=== PATIENT | female | born 1955 | race Caucasian/White ===

== ENCOUNTER → 2017-06-11 10:46 | Outpatient (CLI) | payer BC, SELFPAY ==
--- NOTE | 2017-06-11 | CA_ITS ---
PROCEDURE: 2-D M-mode and color Doppler study INDICATIONS FOR THE TEST: Chest pain+ COPD+ Heart Murmur Tobacco Smoking+ Palpitations+ Fatigue Syncope Edema+ Hypertension+Diabetes Mellitus Rheumatic Fever SOB+KINSEY+Obesity Hyperlipidemia+ Family History HD+ Additional History lt arm pain, dizziness PATIENT INFORMATION HEIGHT: 68 WEIGHT: 183 GENDER: Female B/P: 193/93 2-D/M-MODE INTERPRETATION: 2-D MEASUREMENTS OBSERVED VALUES IN CMS Right Ventricular Dimension (RVDd) 1.1 Interventricular Septum (Thickness)(IVsd) 1.2 Left Ventricular Internal Dimensions(LVIDd) 4.8 Left Ventricular Posterior Wall (Thickness)(LVPWd) 1.1 Aortic Root 2.8 Aortic Cusp Separation 1.9 Left Atrial Dimensions (LAD) 3.5 2D 1. Left atrium is mildly enlarged, left ventricle is normal size, there is mild concentric left ventricular hypertrophy, visually estimated ejection fraction 55% with no obvious regional wall motion abnormality. 2. The right atrium and right ventricle are normal size and contractility. 3. The aortic valve is minimally thickened and fibrosed. 4. The mitral and tricuspid valvular grossly normal. 5. The pulmonic valve is poorly visualized. 6. No significant pericardial effusion noted. DOPPLER INTERROGATION: Doppler interrogation of the aortic, mitral and tricuspid valvular presence of mild mitral and tricuspid regurgitation, tricuspid and jet velocity insufficient for calculation of the right ventricular systolic pressure, diastolic parameters are inconclusive. CONCLUSION: 1. Mildly enlarged left atrium, normal left ventricular size, mild concentric left ventricular hypertrophy, visually estimated ejection fraction 55% with no obvious regional wall motion abnormality, diastolic parameters are inconclusive. 2. Mild mitral and tricuspid regurgitation 3. No significant pericardial effusion noted.
--- NOTE | 2017-06-11 10:51 | XR_ITS ---
XR chest 2V COMPARISON: PA and lateral chest 06/15/2016 HISTORY: Chest pain TECHNIQUE: PA and lateral chest FINDINGS: The lung pederson are well expanded and appear clear of infiltrate. The cardiac silhouette and vascularity are normal and is no pleural fluid. Again noted are surgical clips in right axilla. IMPRESSION: Essentially negative chest
--- NOTE | 2017-06-11 10:51 | NM_ITS ---
CARDIOLITE SPECT MYOCARDIAL PERFUSION SCAN, REST AND STRESS: EXERCISE STRESS [facility] REVIEW QGS EF AND WALL MOTION EVALUATION: QPS - PERFUSION EVALUATION HISTORY: CHEST PAIN , SOB DOSE: 10.86 mCi technetium 99m mibi intravenously at rest followed by 31.1 mCi technetium 99m mibi following the intravenous ministration of 0.4 mg of Lexiscan. Resting blood pressure is 193/93. Stress blood pressure 184/93. FINDINGS: Ejection fraction is calculated to be 55. Uniform myocardial activity with both stress and rest gated images calculated ejection fraction of 55% with normal wall motion IMPRESSION: No scintigraphic evidence of Lexiscan-induced myocardial ischemia. Normal ejection fraction normal wall motion
--- NOTE | 2017-06-11 12:03 | HMH.ITSHM ---
ronaldo schulte carvedilol synthroid lyrica lipitor singaguila trivedi
== END ==
PROVIDERS: Family Provider Family Medicine; PCP Surgery; Visit Provider Family Medicine
DX: R07.9 Chest pain, unspecified (principal); R06.02 Shortness of breath
CPT/HCPCS: 71046; 78452; 93017; 93306; A9502; J2785

== ENCOUNTER → 2018-07-15 12:59 | Outpatient (CLI) | payer BC, SELFPAY ==
[2018-07-15 14:11] LABS: Basophils % 0.4 % (0.1-2.0); Eosinophils # 0.2 K/mm3 (0.0-0.4); Eosinophils % 2.4 % (0.1-12.0); Hematocrit 43.5 % (37.0-47.0); Hemoglobin 13.8 g/dL (12.2-16.2); Lymphocytes # 1.9 K/mm3 (0.7-4.5); Lymphocytes % 21.7 % (10-50); Mean Corpuscular HGB Conc 31.7 g/dL (31.8-35.4); Mean Corpuscular Hemoglobin 31.8 pg (27.0-31.2); Mean Corpuscular Volume 100.4 fl (81-99); Mean Platelet Volume 7.5 fl (7.4-10.4); Monocytes # 0.5 K/mm3 (0.1-1.0); Monocytes % 5.9 % (1.7-9.3); Neutrophils # 6.1 K/mm3 (1.8-7.8); Neutrophils % 69.5 % (37.0-80.0); Platelet Count 341 K/mm3 (142-424); Red Blood Count 4.34 M/mm3 (4.20-5.40); Red Cell Distribution Width 13.3 % (11.5-17.5); White Blood Count 8.8 K/mm3 (4.8-10.8)
[2018-07-15 15:33] LABS: Alanine Aminotransferase 29 U/L (12-78); Albumin Level 3.4 gm/dL (3.4-5.0); Albumin/Globulin Ratio 0.9 (1.1-1.8); Alkaline Phosphatase 82 U/L (46-116); Anion Gap 16.4 mEq/L (5-15); Aspartate Amino Transferase 7 U/L (15-37); Bilirubin,Total 0.4 mg/dL (0.2-1.0); Blood Urea Nitrogen 10 mg/dL (7-18); Calcium 9.1 mg/dL (8.5-10.1); Carbon Dioxide 24 mmol/L (21.0-32.0); Chloride 105 mmol/L (98-107); Chol/HDL Ratio 4.5 (1-3.5); Cholesterol 253 mg/dL (140-200); Estimated Glomerular Filt Rate 101 ml/min (>60); Ferritin 82 ng/mL (8-388); Free T4 (Free Thyroxine) 0.99 ng/dl (0.76-1.46); GFR (African American) 123 ML/MIN (>60); Globulin 3.6 gm/dl (1.3-3.2); Glucose 93 mg/dL (74-106); HDL Cholesterol 56 mg/dL (29-89); LDL Cholesterol 176 mg/dL (0-130); Potassium 4.4 mmoL/L (3.5-5.1); Sodium 141 mmol/L (136-145); Triglycerides 107 mg/dL (30-200); VLDL Cholesterol 21 mg/dL (0-40)
[2018-07-17 06:44] LABS: Iron 114 ug/dL (27-139); UIBC 240 ug/dL (118-369)
[2018-07-17 17:31] LABS: Iron Saturation 32 % (15-55)
== END ==
PROVIDERS: Visit Provider Physician Assistant
DX: E78.2 Mixed hyperlipidemia (principal); E03.9 Hypothyroidism, unspecified; I10 Essential (primary) hypertension; D64.9 Anemia, unspecified
CPT/HCPCS: 36415; 80053; 80061; 82728; 83540; 83550; 84439; 84443; 85025

== ENCOUNTER → 2018-07-19 13:35 | Outpatient (CLI) | payer BC, SELFPAY ==
--- NOTE | 2018-07-19 13:37 | XR_ITS ---
XR hand RT 2V HISTORY: ITS.REASON: PAIN OF RT THUMBINJURY OF RT HAND 4TH DIGIT ORDERING PHYSICIAN: PANCHITO Rutherford PATIENT AGE: 62 years COMPARISON: None FINDINGS: No fracture or dislocation. No lytic or blastic change. There are mild degenerative changes at the DIP joints. IMPRESSION: No acute finding
--- NOTE | 2018-07-19 13:37 | XR_ITS ---
XR DEXA axial skeleton HISTORY: ITS.REASON: POST MENOPAUSAL ORDERING PHYSICIAN: PANCHITO Rutherford PATIENT AGE: 62 years COMPARISON: None FINDINGS: The BMD measured at the Left femoral neck is 0.875 g/cm squared with a T score of -1.2. This is considered Osteopenic according to the World Health Organization criteria. Fracture risk is Moderate. Treatment is advised. The L1 L4 density has T score of -0.4 IMPRESSION: Knee with moderate fracture risk. Treatment is advised. Suggest follow-up exam June 2020
== END ==
PROVIDERS: PCP Family Medicine; Visit Provider Physician Assistant
DX: Z78.0 Asymptomatic menopausal state (principal); M79.644 Pain in right finger(s); S69.91XA Unspecified injury of right wrist, hand and finger(s), initial encounter
CPT/HCPCS: 73130; 77080

== ENCOUNTER → 2019-08-26 12:39 | Outpatient (CLI) | payer BC, SELFPAY ==
--- NOTE | 2019-08-26 12:59 | XR_ITS ---
PROCEDURE: 1. XR WRIST LT MIN 3V 2. XR HAND LT MIN 3V from 08/26/2019 Patient Age:64Y CLINICAL INDICATION: INJURY OF LEFT WRIST Left wrist pain. Left hand pain most evident about 3 and 4 MCP the COMPARISON: XR HAND LT MIN 3V from 08/26/2019 FINDINGS: LEFT HAND 3v: AP, lateral, oblique Developing hypertrophic degenerative arthritic changes noted at DIP joints left hand. Most notable hypertrophic changes are seen at DIP joint long finger(3rd finger) followed by DIP joint index finger(2nd finger). Minor hypertrophy posterior aspect DIP joint 5th finger. MCP and the PIP joints appear well maintained and intact at all fingers a specifically 3rd and 4th MCP joints appear intact and well maintained. Head of these metacarpals intact. No erosive changes At the thumb the the 1st carpal-metacarpal joint, 1st MCP joint appear intact and unremarkable. Only scant hypertrophy about IP joint thumb LEFT WRIST 3v: AP, lateral, oblique: Carpals appear intact no fracture but normal relationships but distal radius and ulna intact. Pronator fat plane appears normal anterior to the wrist IMPRESSION: No acute findings. No fracture nor dislocation Left wrist intact no fracture Left hand, no fracture. Would note degenerative arthritic changes at DIP joints as detailed in text MCP joint 3 and 4 unremarkable Dictated by: Alfredo Biswas MD 08/27/2019 10:06 Electronically signed by Alfredo Biswas MD in [place] 08/27/2019 10:06
--- NOTE | 2019-08-26 12:59 | XR_ITS ---
PROCEDURE: XR CERVICAL SPINE 3V CLINICAL INDICATION: NECK PAIN COMPARISON: No exams were available for comparison FINDINGS: There is reversal of the cervical lordosis at C3-C4 area with 3 mm anterolisthesis of C3. Severe degenerative disc disease is present at C5-C6 and C6-C7. Bridging osteophytes are noted anteriorly at C4-C5 C6 and C7. Endplate osteophytes posteriorly are noted at C5-C6 and C6-C7. Facet arthritic changes are present from C3-C7. No acute fracture or dislocation. There is a 6 mm calcific density projecting over the right frontal sinus medially possibly due to an osteoma or an intracranial calcification. IMPRESSION: Cervical spondylosis with degenerative disc disease and facet arthritic change. Please see above for detail Possible frontal sinus osteoma or intracranial calcification which may be better evaluated with CT Dictated by: Daniel Adrian MD 08/28/2019 07:56 Electronically signed by Daniel Adrian MD in [place] 08/28/2019 07:56
[2019-08-26 13:05] LABS: Basophils # 0.1 K/mm3 (0-0.2); Basophils % 0.6 % (0.1-2.0); Eosinophils # 0.3 K/mm3 (0.0-0.4); Eosinophils % 2.9 % (0.1-12.0); Hematocrit 39.8 % (37.0-47.0); Hemoglobin 13.2 g/dL (12.2-16.2); Lymphocytes # 2.1 K/mm3 (0.7-4.5); Lymphocytes % 20.1 % (10-50); Mean Corpuscular HGB Conc 33.2 g/dL (31.8-35.4); Mean Corpuscular Hemoglobin 33.7 pg (27.0-31.2); Mean Corpuscular Volume 101.3 fl (81-99); Mean Platelet Volume 7.6 fl (7.4-10.4); Monocytes # 0.5 K/mm3 (0.1-1.0); Monocytes % 5.2 % (1.7-9.3); Neutrophils # 7.3 K/mm3 (1.8-7.8); Neutrophils % 71.1 % (37.0-80.0); Platelet Count 335 K/mm3 (142-424); Red Blood Count 3.93 M/mm3 (4.20-5.40); Red Cell Distribution Width 13.5 % (11.5-17.5); White Blood Count 10.3 K/mm3 (4.8-10.8)
[2019-08-26 13:23] LABS: Chloride 106 mmol/L (98-107); Potassium 4.6 mmoL/L (3.5-5.1); Sodium 136 mmol/L (136-145)
[2019-08-26 13:25] LABS: Blood Urea Nitrogen 13 mg/dl (7-17); Estimated Glomerular Filt Rate 84 ml/min (>60); GFR (African American) 102 ML/MIN (>60)
[2019-08-26 13:26] LABS: Alanine Aminotransferase 19 U/L (12-78); Albumin Level 3.9 g/dl (3.5-5.0); Albumin/Globulin Ratio 1.3 (1.1-1.8); Alkaline Phosphatase 73 U/L (38-126); Anion Gap 8.6 mEq/L (5-15); Aspartate Amino Transferase 17 U/L (14-36); Bilirubin,Total 0.6 mg/dl (0.2-1.3); Calcium 9.5 mg/dl (8.4-10.2); Carbon Dioxide 26 mmol/L (22.0-30.0); Cholesterol 231 mg/dl (140-200); Globulin 2.9 g/dL (1.3-3.2); Glucose 105 mg/dl (74-100); Total Protein,Serum 6.8 g/dl (6.3-8.2); Triglycerides 221 mg/dl (30-150); VLDL Cholesterol 44 mg/dL (0-40)
[2019-08-26 13:27] LABS: Chol/HDL Ratio 3.3 (1-3.5); HDL Cholesterol 70 mg/dl (40-60)
[2019-08-26 13:37] LABS: Direct LDL Cholesterol 144.22 mg/dL (100-129)
[2019-08-26 13:44] LABS: Free T4 (Free Thyroxine) 1.01 ng/dl (0.78-2.19)
[2019-08-26 13:57] LABS: Thyroid Stimulating Hormone 5.82 uIU/mL (0.465-4.68)
[2019-08-26 15:19] LABS: 25-OH Vitamin D, Total 33.2 ng/mL (30-100)
[2019-08-27 11:12] LABS: Vitamin B12 998 pg/mL (232-1245)
== END ==
PROVIDERS: Visit Provider Physician Assistant
DX: E03.9 Hypothyroidism, unspecified (principal); E53.8 Deficiency of other specified B group vitamins; E78.2 Mixed hyperlipidemia; E55.9 Vitamin D deficiency, unspecified; D64.9 Anemia, unspecified; I10 Essential (primary) hypertension; S69.92XA Unspecified injury of left wrist, hand and finger(s), initial encounter; M54.2 Cervicalgia
CPT/HCPCS: 36415; 72040; 73110; 73130; 80053; 80061; 82306; 82607; 84439; 84443; 85025

== ENCOUNTER → 2019-09-01 12:41 | Outpatient (CLI) | payer BC, SELFPAY ==
--- NOTE | 2019-09-01 12:47 | CA_ITS ---
APPROVED REPORT Excavation Laborer: ROHITH Laterality: Bilateral Study Quality: Good Indications: DIZZINESS,HTN Doppler Spectral Velocity Analysis dICA (R) 67.80/20.50 cm/s dICA (L) 77.90/24.40 cm/s Stalin (R) 91.30/22.50 cm/s Stalin (L) 79.10/25.60 cm/s pICA (R) 81.30/16.30 cm/s pICA (L) 126.90/29.50 cm/s dCCA (R) 93.30/21.00 cm/s dCCA (L) 108.80/33.10 cm/s pCCA (R) 94.20/20.70 cm/s pCCA (L) 123.90/26.40 cm/s Vert (R) 83.80/21.70 cm/s Vert (L) 50.90/14.70 cm/s ICA/CCA 1.00 ICA/CCA 1.20 Findings Duplex evaluation demonstrates stenosis of the right proximal internal carotid artery <20% with PSV <140 cm/sec, EDV <100 cm/sec, and IC/CC Ratio <4.0.Duplex evaluation demonstrates stenosis of the left proximal internal carotid artery <20% with PSV <140 cm/sec, EDV <100 cm/sec, and IC/CC Ratio <4.0.Antegrade flow seen bilateral vertebral arteries. Conclusion No increased velocities to suggest hemodynamically significant stenosis in either internal carotid artery. Electronically signed by : Daniel Adrian MD 09/01/2019 16:26:50
--- NOTE | 2019-09-01 13:20 | MR_ITS ---
PROCEDURE: MR HEAD/BRAIN WO/W CON CLINICAL INDICATION: PARESTHESIA, DIZZINESS, FREQUENT FALLS Dizziness, falling frequently, history of breast cancer, right-sided temporal headache COMPARISON: No exams were available for comparison TECHNIQUE: Routine multiplanar multi echo sequences are performed without and with gadolinium enhancement. FINDINGS: No midline shift, mass effect, intracranial hemorrhage, or hydrocephalus is evident. There are scattered periventricular and subcortical T2 white matter hyperintensities which are nonspecific and may be due to ischemic gliotic change from microvascular disease. No enhancing lesions are evident. No evidence of acute infarction the pituitary, optic chiasm, corpus callosum, and craniocervical junction have an unremarkable appearance. 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 Scattered nonspecific T2 white matter hyperintensities which may be due to ischemic gliotic foci from microvascular disease. Benign-appearing 6 mm pineal cyst Otherwise negative MRI of the brain without and with contrast Dictated by: Daniel Adrian MD 09/02/2019 11:31 Electronically signed by Daniel Adrian MD in [place] 09/02/2019 11:32
== END ==
PROVIDERS: PCP Family Medicine; Visit Provider Physician Assistant
DX: R42 Dizziness and giddiness (principal); R20.2 Paresthesia of skin; R29.6 Repeated falls
CPT/HCPCS: 70553; 93880; A9576

== ENCOUNTER → 2019-09-07 07:39 | Outpatient (CLI) | payer BC, SELFPAY ==
--- NOTE | 2019-09-07 07:44 | CT_ITS ---
PROCEDURE: CT SINUS WO CON CLINICAL HISTORY: MASS OF SINUS Headache, history of dizziness and paresthesias COMPARISON: MR HEAD/BRAIN WO/W CON from 09/01/2019 TECHNIQUE: Axial images obtained with sagittal and coronal reformats. All CT scans at the facility use one or more dose reduction, viz: automated exposure control, ma/kV adjustment per patient size (including targeted exams where dose is matched to indication, i.e. head), or iterative reconstruction technique. FINDINGS: Small osteoma noted in the left frontal sinus anteriorly. Minimal mucosal thickening ethmoid sinus on the left. The maxillary sinuses have an unremarkable appearance. There is an air-fluid level and posterior extension of the sphenoid sinus on the right. The sphenoid sinus extends posteriorly into the clivus as a normal variant. There is mucosal thickening and air-fluid level at this region. This area does demonstrate increased T2 signal on the MRI of 09/01/2019. A mass of the sinus is not identified. Mild mucosal thickening involves the lateral aspect of the sphenoid sinus on the right posteriorly as well. The mastoid sinuses have an unremarkable appearance. No significant nasal septal deviation.. The TMJs have an unremarkable appearance as do the orbits. IMPRESSION: 1. 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 There is an air-fluid level and mucosal thickening at this region consistent with sinusitis within this area of extension. 2. Small left frontal sinus osteoma with minimal mucosal thickening of the left ethmoid sinuses Dictated by: Daniel Adrian MD 09/09/2019 08:07 Electronically signed by Daniel Adrian MD in [place] 09/09/2019 08:07
--- NOTE | 2019-09-07 08:09 | MR_ITS ---
PROCEDURE: MR CERVICAL SPINE WO CON CLINICAL INDICATION: OSTEOARTHRITIS OF SPINE WITH RADICULOPATHY Right shoulder pain with numbness and tingling down right arm. X 3 months. Falling frequently. Headache. Prior x-ray 08/26/2019 COMPARISON: XR CERVICAL SPINE 3V from 08/26/2019 TECHNIQUE: Standard multiplanar multiecho sequences are performed without contrast. 3-D MIP and myelographic images are also rendered and reviewed FINDINGS: The craniocervical junction has an unremarkable appearance. There is reversal of the cervical lordosis C2-C3: Mild left foraminal narrowing from uncovertebral hypertrophy. C3-C4: Mild right foraminal narrowing from facet and uncovertebral hypertrophy C4-C5: Degenerate disc disease with bulging disc. There is narrowing of the canal at 10 mm with mild flattening of the cord anteriorly. C5-C6: Degenerate disc disease with bulging disc. There is 3 mm retrolisthesis of C5 with endplate osteophytes. There is canal stenosis of 8 mm with bilateral lateral recess and foraminal narrowing and minimal flattening of the cord anteriorly. There is increased T2 signal involving the C5 and C6 vertebral bodies consistent with type 1 endplate changes. Prominent anterior osteophytes are present at C5-C6 C6-C7: Degenerate disc disease with mild bulging disc with narrowing of the canal at 9 mm and bilateral foraminal narrowing greater on the right. C7-T1: Unremarkable There is degenerative disc disease at T3-T4 with bulging disc only imaged in the sagittal plane. IMPRESSION: Multilevel cervical spondylosis as detailed above with degenerative disc disease with bulging discs, endplate hypertrophy and uncovertebral hypertrophy noted with canal stenosis and foraminal narrowing. Please see above for detailed description at each level. The no extruded herniated disc. Dictated by: Daniel Adrian MD 09/08/2019 12:18 Electronically signed by Daniel Adrian MD in [place] 09/08/2019 12:18
== END ==
PROVIDERS: PCP Family Medicine; Visit Provider Physician Assistant
DX: J34.89 Other specified disorders of nose and nasal sinuses (principal)
CPT/HCPCS: 70486; 72141; 76376

== ENCOUNTER 2019-12-04 13:28 | Emergency (ER) | payer BC, SELFPAY ==
[2019-12-04 14:42] VITALS: BP 157/96; PULSE 64; RESP 18; TEMP 36.9; O2SAT 97; BMI 27.3
--- NOTE | 2019-12-04 14:50 | HMH.EDUTC ---
[facility] Disposition Clinical Impression: Otitis media Qualifiers: Otitis media type: suppurative Chronicity: acute Laterality: bilateral Recurrence: non-recurrent Spontaneous tympanic membrane rupture: without spontaneous rupture Qualified Code(s): H66.003 - Acute suppurative otitis media without spontaneous rupture of ear drum, bilateral Disposition: Home, Self-Care Condition on Discharge: Good Instructions: Middle Ear Infection Additional Instructions: Drink plenty of fluids. Take tylenol or ibuprofen for pain or fever. Take the medications as directed. Follow up with your regular doctor. GO TO THE ER FOR ANY WORSENING SYMPTOMS Prescriptions: Amoxicillin [Amoxicillin 500mg Tab] 500 mg PO TID 10 Days #30 tab Transmission Status: Received by [facility] methylPREDNISolone [Medrol] 4 mg PO DIRECTED 6 Days #21 tab.ds.pk Transmission Status: Received by [facility] Referrals: Arely Hanna MD [Primary Care Provider] - Time of Disposition: 15:11 Medical Decision Making - Medical Records Medical records reviewed: No: I reviewed the patient's medical records. - Yossi Inquiry Pt receiving controlled substance: No Vital Signs: 12/04/19 14:42 12/04/19 15:13 Temperature 98.5 F 98.5 F Temperature Source Oral Pulse Rate 64 Pulse Rate [Right Brachial] 64 Respiratory Rate 18 18 Blood Pressure 157/96 H Blood Pressure [Right Arm] 157/96 H Blood Pressure Mean [Right Arm] 116 Blood Pressure Source [Right Arm] Automatic Cuff Blood Pressure Position [Right Arm] Sitting 02 Sat by Pulse Oximetry 97 Oxygen Delivery Method Room Air [facility] HPI - General Stated complaint: dizzy Time Seen by Provider: 12/04/19 14:50 Mode of Arrival: Ambulatory Source of Information: Patient Limitations: No Limitations Description of Symptoms (Recalled from Triage Doc. by RN): PATIENT C/O PAIN AND SWELLING TO LEFT OUTER EAR WITH DIZZINESS X 2-3 DAYS HEENT Symptoms (Recalled from RN notes): Yes Resp Symptoms (Recalled from RN notes): No Skin Symptoms (Recalled from RN notes): No MS Symptoms (Recalled from RN notes): No Functional Status (Recalled from RN notes): WNL - History of Present Illness Provider Complaint: She c/o left ear pain for the past 3 days. She state that she has a history of frequent ear infections. - Related Data Home Medications Medication Instructions Recorded Confirmed Atorvastatin Calcium [Lipitor 10mg 10 mg PO HS 05/01/19 10/17/19 Tab] Fluticasone/Vilanterol [Breo 1 puff IH DAILY 05/01/19 10/17/19 Ellipta 200-25 Mcg INH] Montelukast Sodium 10 mg PO DAILY 05/01/19 10/17/19 Pregabalin 75 mg PO BID 05/01/19 10/17/19 carvediloL [Carvedilol 3.125mg Tab] 3.125 mg PO BID 05/01/19 10/17/19 cefdinir 300 mg capsule 300 mg PO BID cap 09/26/19 10/17/19 citalopram 20 mg tablet 20 mg PO DAILY tab 09/26/19 10/17/19 diclofenac epolamine 1.3 % 1 patch TRANSDERMA PRN each 09/26/19 10/17/19 transdermal 12 hour patch levothyroxine 88 mcg tablet 88 mcg PO DAILY tab 09/26/19 10/17/19 loratadine 10 mg tablet 10 mg PO DAILY tab 09/26/19 10/17/19 multivitamin 1 tab PO DAILY 09/26/19 10/17/19 calcium carbonate 500 mg calcium 500 mg PO DAILY 10/17/19 10/17/19 (1,250 mg) tablet cholecalciferol (vitamin D3) 50 50 mcg PO DAILY 10/17/19 10/17/19 mcg (2,000 unit) capsule magnesium 30 mg tablet 30 mg PO DAILY 10/17/19 10/17/19 vitamin B complex-folic acid 0.4 1 tab PO DAILY 10/17/19 10/17/19 mg tablet vitamin E 200 unit capsule 200 unit PO DAILY 10/17/19 10/17/19 Previous Rx's Medication Instructions Recorded Etodolac [Etodolac 200mg Cap*] 200 mg PO Q6H PRN #20 cap 05/01/19 fexofenadine 180 mg tablet 180 mg PO DAILY 60 Days #60 tab 10/02/19 sodium chloride 0.65 % nasal spray 1 spray INTRANASAL BID #30 ml 10/02/19 aerosol Amoxicillin [Amoxicillin 500mg Tab] 500 mg PO TID 10 Days #30 tab 12/04/19 methylPREDNISolone [Medrol] 4 mg PO DIRECTED 6 Days #21 12/03
[2019-12-04 15:13] VITALS: BP 157/96; PULSE 64; RESP 18; TEMP 36.9; O2SAT 97
== END 2019-12-04 15:20 | disposition home or self-care (01) ==
PROVIDERS: Emergency Provider Nurse Practitioner Family; PCP Family Medicine
DX: H66.003 Acute suppurative otitis media without spontaneous rupture of ear drum, bilateral (principal); I10 Essential (primary) hypertension; E78.5 Hyperlipidemia, unspecified; K21.9 Gastro-esophageal reflux disease without esophagitis; E11.9 Type 2 diabetes mellitus without complications; F41.8 Other specified anxiety disorders; J45.909 Unspecified asthma, uncomplicated; G43.709 Chronic migraine without aura, not intractable, without status migrainosus; Z90.49 Acquired absence of other specified parts of digestive tract; Z79.899 Other long term (current) drug therapy; Z88.5 Allergy status to narcotic agent
CPT/HCPCS: 99201

== ENCOUNTER → 2020-06-10 14:33 | Outpatient (CLI) | payer BC, SELFPAY ==
--- NOTE | 2020-06-10 | CA_ITS ---
APPROVED REPORT Left Upper Extremity Venous Study for DVT. 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 Palpable knot in Left upper arm resolved with massage sending arm pain up more proximal to axilla Risk Factors Prior Pulmonary Embolism Vein Imaging IJV (L): Normal phasic flow is seen. Normal flow, augmentation and compression is seen. No evidence of Deep Vein Thrombosis. No abnormalities are demonstrated. SCV (L): Normal phasic flow is seen. Normal flow, augmentation and compression is seen. No evidence of Deep Vein Thrombosis. No abnormalities are demonstrated. Axillary (L): Normal phasic flow is seen. Normal flow, augmentation and compression is seen. No evidence of Deep Vein Thrombosis. No abnormalities are demonstrated. Brachial (L): Normal phasic flow is seen. Normal flow, augmentation and compression is seen. No evidence of Deep Vein Thrombosis. No abnormalities are demonstrated. Basilic (L): Normal phasic flow is seen. Normal flow, augmentation and compression is seen. No evidence of Deep Vein Thrombosis. No abnormalities are demonstrated. Cephalic (L): Normal phasic flow is seen. Normal flow, augmentation and compression is seen. No evidence of Deep Vein Thrombosis. No abnormalities are demonstrated. Radial (L): Normal phasic flow is seen. Normal flow, augmentation and compression is seen. No evidence of Deep Vein Thrombosis. No abnormalities are demonstrated. Ulnar (L): Normal phasic flow is seen. Normal flow, augmentation and compression is seen. No evidence of Deep Vein Thrombosis. No abnormalities are demonstrated. Findings Duplex evaluation of the left upper extremity demonstrates no evidence of DVT. Conclusion Duplex evaluation of the left upper extremity demonstrates no evidence of DVT. Electronically signed by : Daniel Adrian MD 06/10/2020 15:56:03
[2020-06-10 15:53] LABS: Chloride 106 mmol/L (98-107); Potassium 4.9 mmoL/L (3.5-5.1); Sodium 138 mmol/L (136-145)
[2020-06-10 15:55] LABS: Blood Urea Nitrogen 17 mg/dl (7-17); Estimated Glomerular Filt Rate 84 ml/min (>60); GFR (African American) 102 ML/MIN (>60)
[2020-06-10 15:56] LABS: Alanine Aminotransferase 19 U/L (12-78); Albumin Level 4.1 g/dl (3.5-5.0); Albumin/Globulin Ratio 1.5 (1.1-1.8); Alkaline Phosphatase 80 U/L (38-126); Anion Gap 12.9 mEq/L (5-15); Aspartate Amino Transferase 19 U/L (14-36); Bilirubin,Total 0.3 mg/dl (0.2-1.3); Calcium 9.8 mg/dl (8.4-10.2); Carbon Dioxide 24 mmol/L (22.0-30.0); Globulin 2.8 g/dL (1.3-3.2); Glucose 98 mg/dl (74-100); Total Protein,Serum 6.9 g/dl (6.3-8.2)
[2020-06-10 16:00] LABS: Erythrocyte Sedimentation Rate 16 mm/hr (0-30)
== END ==
PROVIDERS: PCP Family Medicine; Visit Provider Family Medicine
DX: M79.602 Pain in left arm (principal); Z86.718 Personal history of other venous thrombosis and embolism
CPT/HCPCS: 36415; 80053; 85651; 93971

== ENCOUNTER → 2020-12-11 15:29 | Outpatient (CLI) | payer MEDICARE, SELFPAY ==
--- NOTE | 2020-12-11 15:40 | XR_ITS ---
PROCEDURE: XR FOOT RT MIN 3V CLINICAL INDICATION: RT FOOT PAIN (PER ELOISA DAVIS) COMPARISON: No exams were available for comparison FINDINGS: No fracture or dislocation. No lytic or blastic change. There is normal mineralization. The joint spaces are well-preserved. No significant degenerative/arthritic changes. No erosive changes evident. Other findings:None. IMPRESSION: No acute findings. Dictated by: Daniel Adrian MD 12/11/2020 16:29 Daniel Adrian MD in [place] 12/11/2020 16:29
[2020-12-11 16:08] LABS: Adenovirus,PCR Not Detected (NotDetected); Bordetella Pertussis Not Detected (NotDetected); Chlamydophila Pneumoniae, PCR Not Detected (NotDetected); Coronavirus 19, PCR Not Detected (NotDetected); Coronavirus 229E Not Detected (NotDetected); Coronavirus NL63 Not Detected (NotDetected); Coronavirus OC43 Not Detected (NotDetected); Coronovirus HKU1,PCR Not Detected (NotDetected); Human Metapneumovirus Not Detected (NotDetected); Influenza A, PCR Not Detected (NotDetected); Influenza AH1, 2009 Not Detected (NotDetected); Influenza AH1, PCR Not Detected (NotDetected); Influenza AH3,PCR Not Detected (NotDetected); Influenza B, PCR Not Detected (NotDetected); Microscopic, Urine URINE MICROSCOPIC (MICROSCOPIC); Mycoplasma Pneumoniae, PCR Not Detected (NotDetected); Parainfluenza 1, PCR Not Detected (NotDetected); Parainfluenza 2, PCR Not Detected (NotDetected); Parainfluenza 3, PCR Not Detected (NotDetected); Parainfluenza 4, PCR Not Detected (NotDetected); Respiratory Syncytial Virus Not Detected (NotDetected); Rhinovirus/Enterovirus Not Detected (NotDetected)
[2020-12-11 16:16] LABS: Appearance,Urine CLOUDY (Clear); Bilirubin,Urine Negative (Negative); Blood, Urine Negative (Negative); Color,Urine DK YELLOW (Yellow); Glucose,Urine (UA) Negative (Negative); Ketones,Urine Negative (Negative); Leukocyte Esterase,Urine 1+ (Negative); Nitrate,Urine Negative (Negative); Protein,Urine TRACE (Negative)
[2020-12-11 16:29] LABS: Basophils # 0.1 K/mm3 (0-0.2); Basophils % 0.9 % (0.1-2.0); Eosinophils # 0.5 K/mm3 (0.0-0.4); Eosinophils % 4.1 % (0.1-12.0); Hematocrit 42.7 % (37.0-47.0); Hemoglobin 13.5 g/dL (12.2-16.2); Lymphocytes # 2.7 K/mm3 (0.7-4.5); Lymphocytes % 24.3 % (10-50); Mean Corpuscular HGB Conc 31.6 g/dL (31.8-35.4); Mean Corpuscular Volume 104.3 fl (81-99); Mean Platelet Volume 8.3 fl (7.4-10.4); Monocytes # 0.7 K/mm3 (0.1-1.0); Neutrophils # 7.2 K/mm3 (1.8-7.8); Neutrophils % 64.8 % (37.0-80.0); Platelet Count 393 K/mm3 (142-424); Red Cell Distribution Width 13.2 % (11.5-17.5); White Blood Count 11.2 K/mm3 (4.8-10.8)
[2020-12-11 18:36] LABS: Bacteria,Urine 1+ /lpf; Squamous Epithelial Cell,Urine Occasional #/hpf (0-5); WBC,Urine TNTC #/hpf (0-3)
== END ==
PROVIDERS: PCP Family Medicine; Visit Provider Physician Assistant
DX: Z20.822 Contact with and (suspected) exposure to COVID-19 (principal); N39.0 Urinary tract infection, site not specified; M79.671 Pain in right foot; B96.1 Klebsiella pneumoniae [K. pneumoniae] as the cause of diseases classified elsewhere
CPT/HCPCS: 36415; 73630; 81001; 85025; 87086; 87088; 87186; 87581; 87632; 87798; C9803; U0003; U0005

== ENCOUNTER 2021-01-29 14:03 | Emergency (ER) | payer MEDICARE, SELFPAY ==
[2021-01-29 14:18] VITALS: BP 155/93; PULSE 61; RESP 18; TEMP 37.1; O2SAT 96; BMI 28.1
--- NOTE | 2021-01-29 14:58 | HMH.EDGENADL ---
ED Disposition Clinical Impression: Dermatitis Disposition: Home, Self-Care Condition on Discharge: Good Instructions: DI for Contact Dermatitis Prescriptions: Hydrocortisone [Hydrocortisone 1% Cream 30gm Tube] 1 applicatio TP BID 10 Days #30 gm Transmission Status: Pending to [facility] Referrals: Arely Hanna MD [Primary Care Provider] - [facility] [Other] ( [place] [address] Call [phone] ) - Critical Care Critical Care Time: No Attestation: On 01/29/21, the high probability of a clinically significant, sudden or life threatening deterioration of the following system(s) required my full and direct attention, intervention and personal management. The time I documented below is in addition to time spent performing reported procedures but includes the following listed in this critical care notation. Medical Decision Making - Medical Records Medical records reviewed: Yes: I reviewed the patient's medical records. - Yossi Inquiry Pt receiving controlled substance: No Vital Signs: 01/29/21 14:18 Temperature 98.7 F Temperature Source Oral Pulse Rate [Right Radial] 61 Respiratory Rate 18 Blood Pressure [Right Arm] 155/93 H Blood Pressure Mean [Right Arm] 113 Blood Pressure Source [Right Arm] Automatic Cuff Blood Pressure Position [Right Arm] Sitting 02 Sat by Pulse Oximetry 96 Oxygen Delivery Method Room Air Medical Decision Narrative: 65-year-old female presented to the emergency department with some itchiness and irritation. The patient is concerned that she has fleas burrowing in her skin. However they state that they have fumigated there place of residence multiple times. I do not see any obvious bugs or burrowing lesions. Patient's findings are consistent with excoriations. Patient will be given some topical steroids to help with symptoms. Given dermatology follow-up. Given strict return precautions. Verbalized understanding. General Adult HPI - General Chief complaint: Recheck/Abnormal Lab/Rx Stated complaint: fleas Time Seen by Provider: 01/29/21 14:20 Mode of Arrival: Ambulatory Limitations: No Limitations Description of Symptoms (Recalled from ER Triage Doc. by RN): Pt stated that they have been dealing with internal and external fleas for about 6 months. She was given cream to deal with them. She states that she has ear pain. She thinks they are down in her ear. She states that she can see them in her spit. - History of Present Illness HPI narrative: Is a 65-year-old female presented to the emergency department concerned that she may have fleas. Patient states that she has had this for quite some months. She thinks she is having fleas that truong underneath her skin in her mouth and her eyes. Patient states that she is spitting them. She is concerned because they are not getting any better. She was given permethrin cream a few weeks ago and has been using it, however it is not helping. She states that the lesions are itchy and irritated in nature. She denies any headache or change in vision. No focal weakness. No chest pain shortness of breath and abdominal provided. No diarrhea. - Related Data Home Medications Medication Instructions Recorded Confirmed Atorvastatin Calcium [Lipitor 10mg 10 mg PO HS 05/01/19 10/17/19 Tab] Fluticasone/Vilanterol [Breo 1 puff IH DAILY 05/01/19 10/17/19 Ellipta 200-25 Mcg INH] Montelukast Sodium 10 mg PO DAILY 05/01/19 10/17/19 Pregabalin 75 mg PO BID 05/01/19 10/17/19 carvediloL [Carvedilol 3.125mg Tab] 3.125 mg PO BID 05/01/19 10/17/19 cefdinir 300 mg capsule 300 mg PO BID cap 09/26/19 10/17/19 citalopram 20 mg tablet 20 mg PO DAILY tab 09/26/19 10/17/19 diclofenac epolamine 1.3 % 1 patch TRANSDERMA PRN each 09/26/19 10/17/19 transdermal 12 hour patch levothyroxine 88 mcg tablet 88 mcg PO DAILY tab 09/26/19 10/17/19 loratadine
[2021-01-29 15:27] VITALS: BP 155/93; PULSE 61; RESP 18; TEMP 37.1; O2SAT 96
== END 2021-01-29 15:27 | disposition home or self-care (01) ==
PROVIDERS: Emergency Provider Emergency Medicine; PCP Family Medicine
DX: L30.9 Dermatitis, unspecified (principal); E78.5 Hyperlipidemia, unspecified; F41.8 Other specified anxiety disorders; E11.9 Type 2 diabetes mellitus without complications; K21.9 Gastro-esophageal reflux disease without esophagitis; I10 Essential (primary) hypertension; Z88.5 Allergy status to narcotic agent; Z79.899 Other long term (current) drug therapy
CPT/HCPCS: 99281

== ENCOUNTER 2021-04-10 08:39 | Emergency (ER) | payer MEDICARE, SELFPAY ==
[2021-04-10 08:41] VITALS: BP 181/100; PULSE 89; RESP 16; TEMP 36.6; O2SAT 98; BMI 27.3
--- NOTE | 2021-04-10 09:38 | XR_ITS ---
FINAL REPORT CLINICAL HISTORY: productive cough COMPARISON: 05/01/2019 FINDINGS: TWO VIEWS OF THE CHEST The heart is normal in size. The mediastinum is unremarkable. The lungs are clear. There is no pneumothorax. There are postoperative changes in the right chest wall. IMPRESSION: No acute cardiopulmonary process. Reviewed, Interpreted and Dictated by Shaji Urena III, MD Transcribed by Beatris Thomas Authenticated by Shaji Urena III, MD on 04/10/2021 11:23:34 AM [facility]
--- NOTE | 2021-04-10 09:50 | PC.NURSE ---
Pt to rad.
--- NOTE | 2021-04-10 09:51 | HMH.EDGENADL ---
ED Disposition Clinical Impression: Rash, Productive cough Disposition: Home, Self-Care Condition on Discharge: Good Additional Instructions: Doxycycline as prescribed. Follow-up sputum culture results with your primary care doctor, call for results in 2 to 3 days. Make appointment to see specialist for further evaluation: Pulmonology, Dr. Maynard Dermatology, Dr. Malave [facility] infectious disease: [place] [address] Call [phone] Wednesday - Wednesday: 8 a.m. - 5 p.m. Prescriptions: Doxycycline Monohydrate [Monodox] 100 mg PO BID #20 cap Transmission Status: Received by [email or web address] Referrals: Arely Hanna MD [Primary Care Provider] - Katrina Malave MD [Referring] - Olive Maynard MD [Physician] - - Critical Care Critical Care Time: No Attestation: On 04/10/21, the high probability of a clinically significant, sudden or life threatening deterioration of the following system(s) required my full and direct attention, intervention and personal management. The time I documented below is in addition to time spent performing reported procedures but includes the following listed in this critical care notation. Medical Decision Making - Yossi Inquiry Pt receiving controlled substance: No Vital Signs: 04/10/21 08:41 Temperature 98 F Temperature Source Oral Pulse Rate [Radial] 89 Respiratory Rate 16 Blood Pressure [Right Arm] 181/100 H Blood Pressure Mean [Right Arm] 127 Blood Pressure Position [Right Arm] Sitting 02 Sat by Pulse Oximetry 98 Oxygen Delivery Method Room Air Orders (Tests/Meds): ED MEDICATIONS Generic Name Dose Route Start Last Admin Trade Name Freq PRN Reason Stop Dose Admin Sodium Chloride 3 ml 04/10/21 10:07 Sodium Chloride 3% 15ml Neb IH 05/10/21 10:06 ONCE PRN INDUCE SPUTUM COLLECTION ORDERS Category Date Time Status Chest XR 2 view (NOT portable) [XR chest 2V] Stat Exams 04/10/21 09:38 Taken Sputum Culture & Gram Stain Stat Micro 04/10/21 10:11 Received - Radiology Data #1 Image(s): Chest Image Reviewed: Yes I reviewed the patient's radiology image Preliminary Findings: Normal/NAD (Surgical clips on right side, no acute process) General Adult HPI - General Chief complaint: PAIN Stated complaint: lung pain, cough Time Seen by Provider: 04/10/21 09:52 Mode of Arrival: Ambulatory Limitations: No Limitations Description of Symptoms (Recalled from ER Triage Doc. by RN): PT C/O BUG BITES ALL OVER X 1 YEAR STATES SEEN PCP FOR SAME AND JUST GIVEN MEDS AND SENT HOME . PT ALSO C/O COUGH, AND BACK PAIN X 1 MONTH C/O GREEN SPUTUM. - History of Present Illness HPI narrative: Patient presents along with significant other. They both have the same complaints. 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 They have seen multiple physicians. They have been to the emergency department here several times. They have seen in primary care doctors. They have been to the emergency department at [facility]. They have not seen any specialist, no dermatologists for pulmonary physicians. They also complained of productive cough with green sputum with black flecks in it that they believed to be bugs. They have been treated for scabies 3 times. They have had lice treatments. They have not been on any antibiotics. They have had an range manager to their home, they state he said he had never seen any bugs like the ones that are inside of us . She thinks she needs referral to an infectious disease specialist. - Related Data Home Medications Medication Instructions Recorded Confirmed Atorvastatin Calcium [Lipitor 10mg 10 mg PO HS 05/01/19 10/17/19 Tab] Fluticasone/Vilanterol [Breo 1 puff IH DAILY 05/01/19 10/17/19 Ellipta 200-25 Mcg INH] Montelukast Sodium 10 mg PO DAILY 05/01/19 10/17/19 Pregabalin 7
[2021-04-10 10:42] VITALS: BP 179/90; PULSE 87; RESP 16; TEMP 36.8; O2SAT 98
== END 2021-04-10 10:43 | disposition home or self-care (01) ==
PROVIDERS: Emergency Provider Emergency Medicine; PCP Family Medicine
DX: R21 Rash and other nonspecific skin eruption (principal); F41.9 Anxiety disorder, unspecified; J44.9 Chronic obstructive pulmonary disease, unspecified; E11.9 Type 2 diabetes mellitus without complications; K21.9 Gastro-esophageal reflux disease without esophagitis; E78.5 Hyperlipidemia, unspecified; E03.9 Hypothyroidism, unspecified; I10 Essential (primary) hypertension
CPT/HCPCS: 71046; 87070; 87205; 99282

== ENCOUNTER → 2021-11-13 11:39 | Outpatient (CLI) | payer MEDICARE, SELFPAY ==
[2021-11-13 11:46] LABS: Coronavirus 19, PCR Not Detected (NotDetected); Influenza A, PCR Not Detected (NotDetected); Influenza B, PCR Not Detected (NotDetected)
== END ==
PROVIDERS: PCP Family Medicine; Visit Provider Surgery
DX: Z12.11 Encounter for screening for malignant neoplasm of colon (principal); Z86.010 Personal history of colon polyps; Z01.812 Encounter for preprocedural laboratory examination; Z20.822 Contact with and (suspected) exposure to COVID-19
CPT/HCPCS: C9803; U0003; U0005

== ENCOUNTER → 2021-12-19 06:56 | Outpatient (CLI) | payer MEDICARE, SELFPAY ==
--- NOTE | 2021-12-19 07:04 | CA_ITS ---
FINAL REPORT TECHNIQUE: Graded compression, spectral analysis and ultrasound images of the venous system of the upper extremity were obtained. CLINICAL HISTORY: PAIN LT ELBOW,C/O KNOT POST LEFT ELBOW,NKI,HX DVT FINDINGS: The jugular vein, subclavian vein, axillary vein, brachial vein, cephalic vein and basilic venous system are fully compressible and demonstrate no evidence of thrombosis. There is a 4 mm subcutaneous nodule at the area of interest with a nonspecific appearance. This does not appear to be a simple cyst. IMPRESSION: No evidence of thrombosis of the venous system of the left upper extremity. Reviewed, Interpreted and Dictated by Shaji Urena III, MD Transcribed by Beatris Thomas Authenticated and [facility]
== END ==
PROVIDERS: PCP Family Medicine; Visit Provider Physician Assistant
DX: R60.1 Generalized edema (principal)
CPT/HCPCS: 93971

== ENCOUNTER 2022-01-09 09:55 | Day surgery (SDC) | payer MEDICARE, SELFPAY ==
[2022-01-08 12:32] VITALS: BMI 27.3
--- NOTE | 2022-01-09 08:56 | HMH.SCOPE ---
Procedure: Indications:: Patient Performing Provider:: Shaji Connolly MD
[2022-01-09 10:54] VITALS: BP 128/74; PULSE 57; RESP 18; TEMP 36.8; O2SAT 97
--- NOTE | 2022-01-09 12:42 | P.PN_ITS ---
[facility] Medical History Allergies Fibromyalgia History of anxiety History of breast cancer History of COPD HLD (hyperlipidemia) HTN (hypertension) Hypothyroidism Surgical History History of appendectomy History of cholecystectomy History of D&C History of tonsillectomy Family History Other Family history of diabetes mellitus Family history of heart disease Family history of hypertension Social History Smoking Status: Current some day smoker alcohol intake: never substance use type: denies use current occupational status: retired and other Travel in the last 8 weeks: None household members: other housing: house [facility] Anesthesia Checklist Patient Identification Patient Identification: Arm Band and Verbal (Name & ) Structural Data Admitted From: Home Planned Operative Procedure/s: Colonoscopy Consent for Planned Operative Procedure(s) Verified: Yes Verified Documents: Surgical Consent NPO Status Verified Time NPO: 02:00 Airway Assessment C-Spine Mobility Assessed: Yes TMJ Mobility Assessed: Yes Neurological Assessment Level of Consciousness: Awake, Alert and Appropriate Anesthesia Plan Anesthesia Risk discussed: Yes ASA Class: II Anesthesia Type: MAC
[2022-01-09 12:57] VITALS: O2SAT 97
--- NOTE | 2022-01-09 14:00 | P.PCN_ITS ---
Procedure: Date: 01/09/22 Patient Date of :: 1955 Procedure Performed:: Total colonoscopy with numerous polypectomy Indications:: Patient is a 66-year-old female referred by Dr. Alex Hanna for colonoscopy for positive Cologuard. Patient apparently did undergo colonoscopy greater than 20 years ago. She states that her father had some sort of possible inflammatory bowel disease. She has a paternal uncle who had colon cancer. She has had some minor bloating and left lower quadrant abdominal discomfort. Performing Provider:: Shaji Connolly MD Referring Provider:: Alex Hanna MD Sedation:: MAC sedation Procedure:: Patient history was obtained and appropriate physical examination was performed. Patient's medications and allergies were reviewed. Informed consent was obtained after explaining the benefits, alternatives, and risks of the procedure including, but not limited to, bleeding, perforation, missed lesions, and adverse reaction to anesthesia medications. Patient was transported to endoscopy procedure room. Patient was connected to monitoring devices. Throughout the procedure the patient's blood pressure, pulse, and oxygen saturations were monitored continuously. Patient iden tification and planned procedure were verified by the staff. Patient was positioned in lateral decubitus position. Digital anorectal exam was performed. Variable stiffness Olympus colonoscope was inserted and advanced under direct visualization to the cecum. Adequacy of the colonic preparation was noted. The colonoscope was advanced a short distance into the ileocecal valve. The colonoscope was then slowly withdrawn while carefully examining the color, texture, anatomy, and integrity of the mucosoa circumferentially. Within the rectum retroflexion was performed. Colonoscope was then withdrawn. IMPRESSION: She had a very poor colonic preparation with a large amount of liquid stool throughout the colon with several large stool balls. However there were noted to be several polyps. In the ascending colon there was an adenomatous appearing polyp removed with cutting cold snare. At the hepatic flexure there is a small polyp which was removed with cold snare. However it was unable to be retrieved as there was a large amount of stool and despite readvancing, irrigating thoroughly, and withdrawing the colonoscope it was never able to be retrieved. In the distal transverse colon there was a tiny polyp removed with biopsy forceps. In the descending colon there were a couple of polyps 1 removed with snare and 1 with biopsy forceps. Sigmoid colon there was a small polyp removed with snare. There was significant heavy diverticulosis in the sigmoid colon. Findings:: Poor preparation with liquid stool and several large stool balls Significant diverticulosis with heavy diverticular burden in the sigmoid colon Polyps as noted above, total of 6 polyps. Tiny polyp at hepatic flexure was unable to be retrieved after repeated withdrawal and reinsertion of colonoscope to the cecum and thorough irrigation and suctioning. Recommendations:: Given the number of polyps and poor preparation recommend repeat colonoscopy 4 to 6 months with multi day maximum prep Complications:: None immediately apparent Estimated blood obtained (mL): 2
[2022-01-09 14:03] VITALS: BP 125/71; PULSE 67; RESP 18; TEMP 36.7; O2SAT 95
[2022-01-09 14:13] VITALS: BP 154/88; PULSE 58; RESP 18; O2SAT 98
[2022-01-09 14:23] VITALS: BP 154/83; PULSE 52; RESP 18; O2SAT 98
[2022-01-09 14:30] VITALS: BP 170/75; PULSE 83; RESP 18; O2SAT 98
== END 2022-01-09 14:35 | disposition home or self-care (01) ==
PROVIDERS: PCP Family Medicine; Visit Provider Surgery
PROC: 0DJD8ZZ Inspection of Lower Intestinal Tract, Via Natural or Artificial Opening Endoscopic (ICD-10-PCS; principal; 2022-01-09 11:00)
DX: R19.5 Other fecal abnormalities (principal); K63.5 Polyp of colon; Z80.0 Family history of malignant neoplasm of digestive organs
CPT/HCPCS: 45380; 45385; 88305; J2704

== ENCOUNTER → 2022-06-10 14:02 | Outpatient (CLI) | payer MEDICARE, SELFPAY ==
--- NOTE | 2022-06-10 14:09 | XR_ITS ---
FINAL REPORT CLINICAL HISTORY: INJURY OF RT HIP COMPARISON: 05/01/2019 FINDINGS: RIGHT HIP Two views of the right hip with an AP pelvis demonstrate no acute fracture or dislocation. There are mild degenerative changes of both hips. The visualized bony structures are well aligned. No soft tissue abnormality is seen. IMPRESSION: Mild degenerative change with no acute bony abnormality. Reviewed, Interpreted and Dictated by Shaji Urena III, MD Transcribed by Jackie Mittal Authenticated and [facility]
--- NOTE | 2022-06-10 14:09 | XR_ITS ---
FINAL REPORT CLINICAL HISTORY: INJURY OF RT HIP FINDINGS: LUMBAR SPINE 5 views of the lumbar spine were obtained. There is no evidence of fracture or dislocation. There are moderate degenerative changes. There is facet arthropathy in the lower lumbar spine. There is mild anterolisthesis of L4 on L5. There are mild vascular calcifications. IMPRESSION: Moderate degenerative change with no acute bony abnormality. Reviewed, Interpreted and Dictated by Shaji Urena III, MD Transcribed by Jackie Mittal Authenticated and [facility]
--- NOTE | 2022-06-10 14:09 | XR_ITS ---
FINAL REPORT CLINICAL HISTORY: pain in right thumb COMPARISON: None FINDINGS: 3 views of the right thumb were obtained. There is no acute fracture or dislocation. There is mild degenerative change. There are chronic calcifications adjacent to the 1st MCP which may represent sequela of prior injury. No acute soft tissue abnormality. IMPRESSION: Degenerative change with no acute process. Reviewed, Interpreted and Dictated by Shaji Urena III, MD Transcribed by Gwendolyn Laguna Authenticated and [facility]
== END ==
PROVIDERS: PCP Family Medicine; Visit Provider Physician Assistant
DX: M79.641 Pain in right hand (principal); S69.91XA Unspecified injury of right wrist, hand and finger(s), initial encounter; M25.551 Pain in right hip; S79.911A Unspecified injury of right hip, initial encounter
CPT/HCPCS: 72110; 73140; 73502

== ENCOUNTER → 2022-09-23 12:24 | Outpatient (CLI) | payer MEDICARE, SELFPAY ==
--- NOTE | 2022-09-23 12:27 | CT_ITS ---
FINAL REPORT TECHNIQUE: Axial CT without contrast with coronal and sagittal reconstructions CLINICAL HISTORY: RT HIP PAIN, pt states had negative hip xray but still having pain COMPARISON: None FINDINGS: CT bony pelvis: There is mild bilateral sacroiliac joint arthropathy. No evidence of fracture is identified. There is mild degenerative change in the hips bilaterally. IMPRESSION: Mild degenerative change without acute process. Reviewed, Interpreted and Dictated by Arely Allen MD Transcribed by Lexis Mullen Authenticated and [facility]
--- NOTE | 2022-09-23 12:27 | CT_ITS ---
FINAL REPORT TECHNIQUE: Thin section axial CT images with coronal and sagittal reformats were performed. This study was performed with techniques to keep radiation doses as low as reasonably achievable (ALARA). Individualized dose reduction techniques using automated exposure control or adjustment of mA and/or kV according to the patient''s size were employed. CLINICAL HISTORY: RT HIP PAIN, pt states had negative hip xray but still having pain COMPARISON: None FINDINGS: There are no fractures. There are no masses or fluid collections. There are no soft tissue abnormalities. IMPRESSION: Unremarkable CT right hip. Reviewed, Interpreted and Dictated by Arely Allen MD Transcribed by Lexis Mullen Authenticated and [facility]
== END ==
LOC: RAD 12:24
PROVIDERS: PCP Family Medicine; Visit Provider Physician Assistant
DX: M25.551 Pain in right hip (principal)
CPT/HCPCS: 72192; 73700

== ENCOUNTER 2022-09-25 07:26 | Day surgery (SDC) | payer MEDICARE, SELFPAY ==
[2022-09-24 14:14] VITALS: BMI 27.3
[2022-09-25 07:45] VITALS: BP 148/79; PULSE 69; RESP 16; TEMP 36.8; O2SAT 95
--- NOTE | 2022-09-25 08:20 | XR_ITS ---
FINAL REPORT CLINICAL HISTORY: HIP INJECTION IN OR 6 seconds fluoro time COMPARISON: None FINDINGS: FLUOROSCOPY LESS THAN 1 HOUR HISTORY: FINDINGS: Fluoroscopic guidance was provided for right hip injection. A single spot film was obtained. 6 seconds of fluoroscopy time were used. IMPRESSION: As above. Reviewed, Interpreted and Dictated by Shaji Urena III, MD Transcribed by Lexis Mullen Authenticated and [facility]
--- NOTE | 2022-09-25 08:23 | EXP.OP.NOTE ---
Date of procedure: 09/25/22 Pre-op Diagnosis:: Right hip pain osteoarthritis and concomitant lumbar spine pathology Post-op Diagnosis:: Same Procedure performed:: Right hip injection with arthrogram with x-ray guidance for needle placement Surgeon:: Toni Choi DO [employer]TE[employer] REPAIRER HELPER:: Kory Malik Anesthesia: other Estimated blood loss (mL): 0 Clinical Note:: 67-year-old female with concomitant lumbar spine pathology and hip pain osteoarthritis wished undergo hip injection for both therapeutic and diagnostic purposes. Presented today for such. Operative findings:: See dictation Operative note:: Patient was identified preoperatively. Right hip marked with yes and my initials. Taken the operating room placed supine on a radiolucent bed. Right hip was prepped and draped in normal sterile fashion. Once prepped and draped final operative timeout performed to identify proper patient procedure and extremity. Everyone involved in the case agreed. No counter indications to beginning. She was given light sedation and the right hip was identified with the C arm. 18-gauge spinal needle was directed into the hip capsule under direct visualization. Once within the hip capsule arthrogram was performed to confirm needle placement within the capsule. Once confirmed injection of 80 mg Kenalog 3 cc 1% lidocaine was injected to the hip the needle was removed and Band-Aid was placed. Condition: stable Disposition: PACU Complications:: None apparent
[2022-09-25 08:29] VITALS: BP 120/87; PULSE 70; RESP 17; TEMP 36.8; O2SAT 96
--- NOTE | 2022-09-25 08:30 | EXP.ANES.CKL ---
[facility] Disclaimer: The information contained in this section may have been updated after the patient was seen, as this information can be updated by other users. Medical History Allergies Arrhythmia Bladder leak Fibromyalgia History of anxiety History of blood clots History of breast cancer History of COPD HLD (hyperlipidemia) HTN (hypertension) Hypothyroidism Migraine Surgical History History of appendectomy History of cholecystectomy History of D&C History of tonsillectomy Family History Other Family history of diabetes mellitus Family history of heart disease Family history of hypertension Social History Smoking Status: Current some day smoker alcohol intake: never substance use type: denies use current occupational status: retired and other Travel in the last 8 weeks: None household members: other housing: house [facility] Anesthesia Checklist Patient Identification Patient Identification: Verbal (Name & ) Structural Data Admitted From: Home Planned Operative Procedure/s: r hip injection Consent for Planned Operative Procedure(s) Verified: Yes NPO Status Verified Time NPO: 00:00 Additional verifications Anesthesia Reactions: No Hx Blood Transfusions: No Blood Transfusion Reaction: No Airway Assessment C-Spine Mobility Assessed: Yes TMJ Mobility Assessed: Yes Dentition: Good Dentition Neurological Assessment Level of Consciousness: Awake, Alert and Appropriate Anesthesia Plan Anesthesia Risk discussed: Yes Anesthesia Plan: Verified ASA Class: II Anesthesia Type: MAC
[2022-09-25 08:39] VITALS: BP 144/70; PULSE 77; RESP 16; O2SAT 97
[2022-09-25 08:49] VITALS: BP 142/71; PULSE 70; RESP 18; O2SAT 99
[2022-09-25 08:59] VITALS: BP 132/80; PULSE 69; RESP 18; TEMP 36.9; O2SAT 99
== END 2022-09-25 08:59 | disposition home or self-care (01) ==
PROVIDERS: PCP Family Medicine; Visit Provider Orthopaedic Surgery
PROC: (CPT 20610; principal; 2022-09-25 08:15)
DX: M16.11 Unilateral primary osteoarthritis, right hip (principal)
CPT/HCPCS: 20610; 73502; 76000

== ENCOUNTER 2022-10-03 22:59 | Emergency (ER) | payer MEDICARE, SELFPAY ==
[2022-10-03 23:00] VITALS: BP 126/89; PULSE 69; RESP 16; TEMP 36.6; O2SAT 97; BMI 27.0
--- NOTE | 2022-10-03 23:00 | XR_ITS ---
PROCEDURE INFORMATION: Exam: XR Chest Exam date and time: 10/03/2022 11:25 PM Age: 67 years old Clinical indication: Other: Syncope; Additional info: Pre-syncope TECHNIQUE: Imaging protocol: Radiologic exam of the chest. Views: 1 view. Total images: 1 COMPARISON: CR XR CHEST 2V 04/10/2021 9:42 AM FINDINGS: Tubes, catheters and devices: EKG leads are present. Lungs: Minor bibasilar atelectasis. No concerning infiltrate or airspace consolidation. No pulmonary vascular congestion or edema. Pleural spaces: Biapical pleural scarring. No pleural effusion or pneumothorax. Heart/Mediastinum: Unremarkable. No cardiomegaly. No mediastinal widening or hilar enlargement. Bones/joints: Osteopenia. Soft tissues: Multiple surgical clips right chest wall and axilla. IMPRESSION: 1. Minor bibasilar atelectasis. 2. Otherwise, no radiographically acute cardiopulmonary process.
--- NOTE | 2022-10-03 23:00 | CT_ITS ---
PROCEDURE INFORMATION: Exam: CT Head Without Contrast Exam date and time: 10/03/2022 11:35 PM Age: 67 years old Clinical indication: Other: Syncope; Additional info: Pre-syncope, global headache TECHNIQUE: Imaging protocol: Computed tomography of the head without contrast. Radiation optimization: All CT scans at this facility use at least one of these dose optimization techniques: automated exposure control; mA and/or kV adjustment per patient size (includes targeted exams where dose is matched to clinical indication); or iterative reconstruction. REPORTING DATA: Count of CT and Cardiac NM exams in prior 12 months: This patient has received 2 known CTs and 0 known cardiac nuclear medicine studies in the 12 months prior to the current study. COMPARISON: MR HEAD/BRAIN WO/W CON 09/01/2019 1:50 PM FINDINGS: Brain: Normal. No hemorrhage. Unremarkable white matter. No mass effect. Cerebral ventricles: No ventriculomegaly. Paranasal sinuses: Visualized sinuses are unremarkable. No fluid levels. Mastoid air cells: Visualized mastoid air cells are well aerated. Bones/joints: Unremarkable. No acute fracture. Soft tissues: Unremarkable. IMPRESSION: No acute intracranial abnormality.
--- NOTE | 2022-10-03 23:00 | ECG_ITS ---
APPROVED REPORT Exam: Resting ECG HR:59 bpm ECG Measurements Heart Rate 59 AXES OR 134 P 54 QRSd 87 QRS 46 QT 400 T 40 QTc 399 Conclusion SINUS BRADYCARDIA BORDERLINE ECG UNCONFIRMED REPORT Electronically signed by : Rob Moreno MD 10/04/2022 07:00:56
--- NOTE | 2022-10-03 23:00 | CT_ITS ---
PROCEDURE INFORMATION: Exam: CT Abdomen And Pelvis With Contrast Exam date and time: 10/03/2022 11:38 PM Age: 67 years old Clinical indication: Abdominal pain; Additional info: Llq crampy pain, pre-syncope TECHNIQUE: Imaging protocol: Computed tomography of the abdomen and pelvis with contrast. Total images: 318 Radiation optimization: All CT scans at this facility use at least one of these dose optimization techniques: automated exposure control; mA and/or kV adjustment per patient size (includes targeted exams where dose is matched to clinical indication); or iterative reconstruction. Contrast material: ISOVUE; Contrast volume: 75 ml; Contrast route: IV; REPORTING DATA: Count of CT and Cardiac NM exams in prior 12 months: This patient has received 2 known CTs and 0 known cardiac nuclear medicine studies in the 12 months prior to the current study. COMPARISON: CT PELVIS WO CON 09/23/2022 12:32 PM FINDINGS: Lungs: Minor bibasilar atelectasis. Heart: Normal heart size. Liver: Decreased liver attenuation from phase of contrast versus steatosis. Normal liver size and contour. Scattered calcified granuloma. No mass. Gallbladder and bile ducts: Status post cholecystectomy. Mild ectasia common bile duct compatible with post cholecystectomy status. Pancreas: Normal. No ductal dilation. Spleen: Nonenlarged spleen with scattered calcified granuloma. Adrenal glands: Diffuse nodular thickening of bilateral adrenal glands likely reflecting adenomatous hyperplasia. Kidneys and ureters: No hydronephrosis, nephrolithiasis, or renal mass. Stomach and bowel: Unremarkable stomach and duodenum. No ileus or bowel obstruction. Small bowel appears within normal limits. Stool in the distal ileum compatible with chronic stasis. Mild colonic stool burden. Moderate to severe diverticulosis of the sigmoid colon. Mild sigmoid wall thickening from incomplete distention, chronic muscle hypertrophy, or early diverticulitis/colitis. No significant pericolonic edema. No complicating features. Unremarkable rectum. Appendix: Nonvisualized appendix. No secondary signs of appendicitis. Intraperitoneal space: Unremarkable. No free air. No significant fluid collection. Vasculature: Atherosclerotic abdominal aorta without aneurysm. Major abdominal vessels enhance appropriately. Multiple pelvic phleboliths. Lymph nodes: Unremarkable. No enlarged lymph nodes. Urinary bladder: Unremarkable as visualized. Reproductive: Atrophic uterus and ovaries. No adnexal mass. Bones/joints: Osteopenia. No acute osseous abnormality. Severe degenerative changes lumbar spine. Remote minor anterior wedging L1 vertebral body. Mild degenerative change of bilateral hips and SI joints. Soft tissues: Tiny fat containing umbilical hernia. IMPRESSION: 1. Mild wall thickening of the sigmoid colon may reflect incomplete distention, chronic muscle hypertrophy, or early diverticulitis/colitis. No surrounding inflammation. 2. Severe sigmoid diverticulosis. 3. Remote calcified granulomatous disease. 4. Sequela of chronic constipation including stool in the distal ileum. 5. Additional chronic and incidental findings.
--- NOTE | 2022-10-03 23:03 | HMH.EDGENADL ---
Discharge Plan Disposition Patient Disposition: Home, Self-Care Condition: Fair Prescriptions Prescriptions: New amoxicillin-pot clavulanate [Augmentin] 500-125 mg tablet 1 tab PO BID Qty: 20 0RF No Action levothyroxine 88 mcg tablet 88 mcg PO DAILY MDD . multivitamin [Daily Multi-Vitamin] Tablet 1 tab PO DAILY vitamin B complex-folic acid [B Complex 1 (with folic acid)] 0.4 mg tablet 1 tab PO DAILY cholecalciferol (vitamin D3) 50 mcg (2,000 unit) capsule 50 mcg PO DAILY peg 3350-electrolytes [Golytely] 236-22.74-6.74 -5.86 gram recon soln 240 ml PO Q10M Rx Instructions: until fecal effluent is clear Clenpiq 10 mg-3.5 gram- 12 gram/175 mL solution 175 ml PO DAILY Rx Instructions: take first dose at 5-9PM evening before colonoscopy; 2nd dose the next day approximately 5 hrs before colonoscopy carvedilol 3.125 tablet 3.125 mg PO BID pregabalin 75 capsule 75 mg PO BID fluticasone furoate-vilanterol 1 EACH blister with device 1 puff inhalation DAILY Patient Comments: INHALE 1 PUFF BY MOUTH EVERY DAY RINSE MOUTH AFTER EACH USE Referrals Follow up/Referrals: Arely Hanna MD [Primary Care Provider] - See instructions Activity Restrictions/Add. Instructions Additional Instructions/Restrictions: At this time it was felt you are safe to be discharged home. If new or worsening symptoms please do not hesitate to return the emergency department. Please take your antibiotic as prescribed. If symptoms persist in 5 to 7 days follow-up with your family doctor. Clinical Impressions Clinical Impression: Pre-syncope, Diverticulitis Discharge ED Provider: Mj Estrella General Adult HPI General Chief complaint: Syncope Stated complaint: near syncope Time Seen by Provider: 10/03/22 23:00 History of Present Illness HPI narrative: Patient is a 67-year-old female with past medical history of hypothyroidism on levothyroxine, hypertension who presents emergency department for evaluation of lightheadedness, headache, left lower quadrant crampy abdominal pain. Onset was acute, occurring approximately 1 hour prior to arrival. Patient julia from a seated position where she had lightheadedness, the room did not spin in a particular direction, denies falls. Upon EMS arrival patient was clammy, upon standing to the stretcher blood pressure was 90/50. Fingerstick blood glucose was acceptable. With expected patient's crampy abdominal pain that is intermittent, she has had persistent diarrhea nonbloody ever since her gallbladder was taken out several years ago. Denies cough, chest pain, passing out completely, gait difficulties, other acute complaints at this time. Related Data Home Medications Medication Instructions Recorded Confirmed carvedilol 3.125 mg tablet 3.125 mg PO BID BLOOD 05/01/19 09/25/22 PRESSURE/HEART fluticasone furoate 200 1 puff inhalation DAILY Breathing 05/01/19 09/25/22 mcg-vilanterol 25 mcg/dose problems inhalation powder pregabalin 75 mg capsule 75 mg PO BID Back Pain 05/01/19 09/25/22 levothyroxine 88 mcg tablet 88 mcg PO DAILY . 09/26/19 09/25/22 multivitamin (Daily Multi-Vitamin 1 tab PO DAILY . 09/26/19 09/25/22 tablet) cholecalciferol (vitamin D3) 50 50 mcg PO DAILY Supplement 10/17/19 09/25/22 mcg (2,000 unit) capsule vitamin B complex-folic acid 0.4 1 tab PO DAILY Supplement 10/17/19 09/25/22 mg tablet (B Complex 1 (with folic acid)) peg 3350-electrolytes 236 240 ml PO Q10M . 01/09/22 09/25/22 gram-22.74 gram-6.74 gram-5.86 gram solution (Golytely) sod picosulf 10 mg-magnes 3.5 175 ml PO DAILY bowel prep 09/24/22 09/25/22 gram-citric 12 gram/175 mL oral solution (Clenpiq) Previous Rx's Medication Instructions Recorded amoxicillin 500 mg-potassium 1 tab PO BID #20 tabs 10/04/22 clavulanate 125 mg tablet (Augmentin) Allergies Allergy/AdvReac Type Severity Reaction St
[2022-10-03 23:12] LABS: Basophils # 0.1 K/mm3 (0-0.2); Basophils % 0.3 % (0.1-2.0); Eosinophils # 0.2 K/mm3 (0.0-0.4); Eosinophils % 1.4 % (0.1-12.0); Hematocrit 47.2 % (37.0-47.0); Hemoglobin 14.7 g/dL (12.2-16.2); Lymphocytes # 2.5 K/mm3 (0.7-4.5); Lymphocytes % 16.7 % (10-50); Mean Corpuscular HGB Conc 31.2 g/dL (31.8-35.4); Mean Corpuscular Hemoglobin 30.5 pg (27.0-31.2); Mean Corpuscular Volume 97.7 fl (81-99); Mean Platelet Volume 7.9 fl (7.4-10.4); Monocytes # 0.9 K/mm3 (0.1-1.0); Monocytes % 6.2 % (1.7-9.3); Neutrophils # 11.1 K/mm3 (1.8-7.8); Neutrophils % 75.4 % (37.0-80.0); Platelet Count 487 K/mm3 (142-424); Red Blood Count 4.84 M/mm3 (4.20-5.40); Red Cell Distribution Width 13.1 % (11.5-17.5); White Blood Count 14.8 K/mm3 (4.8-10.8)
[2022-10-03 23:21] VITALS: BP 154/84; BP 161/96; BP 180/104; PULSE 60; PULSE 65; PULSE 75
[2022-10-03 23:21] LABS: Alanine Aminotransferase 23 U/L (12-78); Albumin Level 3.9 g/dl (3.5-5.0); Albumin/Globulin Ratio 1.1 (1.1-1.8); Alkaline Phosphatase 78 U/L (38-126); Anion Gap 13.8 mEq/L (5-15); Aspartate Amino Transferase 23 U/L (14-36); Bilirubin,Total 0.2 mg/dl (0.2-1.3); Blood Urea Nitrogen 19 mg/dl (7-17); Calcium 9.3 mg/dl (8.4-10.2); Carbon Dioxide 21 mmol/L (22.0-30.0); Chloride 106 mmol/L (98-107); Creatinine Clearance Estimated 70 mL/min (50-200); Estimated Glomerular Filt Rate 72 ml/min (>60); GFR (African American) 87 ML/MIN (>60); Globulin 3.4 g/dL (1.3-3.2); Glucose 145 mg/dl (74-100); Magnesium 2.1 mg/dl (1.6-2.3); Potassium 4.8 mmoL/L (3.5-5.1); Sodium 136 mmol/L (136-145); Total Protein,Serum 7.3 g/dl (6.3-8.2)
--- NOTE | 2022-10-03 23:27 | PC.NURSE ---
Patient gone to RAD at this time.
[2022-10-03 23:39] LABS: Free T4 (Free Thyroxine) 1.26 ng/dl (0.78-2.19)
[2022-10-03 23:51] LABS: Influenza A, PCR Not Detected (NotDetected); Influenza B, PCR Not Detected (NotDetected)
[2022-10-03 23:52] LABS: Thyroid Stimulating Hormone 6.76 uIU/mL (0.465-4.68)
--- NOTE | 2022-10-03 23:52 | PC.NURSE ---
patient back in room at this time.
[2022-10-03 23:53] LABS: Coronavirus 19, PCR Not Detected (NotDetected)
[2022-10-04 00:04] VITALS: BP 131/103; PULSE 65; RESP 13; O2SAT 99
[2022-10-04 00:33] VITALS: BP 130/71; PULSE 70; RESP 16; O2SAT 95
[2022-10-04 00:46] VITALS: BP 130/71; PULSE 67; RESP 18; TEMP 36.9; O2SAT 98
== END 2022-10-04 00:52 | disposition home or self-care (01) ==
PROVIDERS: Emergency Provider Emergency Medicine; PCP Family Medicine
DX: R55 Syncope and collapse (principal); K57.32 Diverticulitis of large intestine without perforation or abscess without bleeding; E03.9 Hypothyroidism, unspecified; I10 Essential (primary) hypertension; R51.9 Headache, unspecified; E78.5 Hyperlipidemia, unspecified
CPT/HCPCS: 70450; 71045; 74177; 80053; 83735; 84439; 84443; 85025; 87636; 93005; 96361; 96374; 99285; J0131; Q9967

== ENCOUNTER → 2022-10-08 13:24 | Outpatient (CLI) | payer MEDICARE, SELFPAY ==
--- NOTE | 2022-10-08 13:33 | XR_ITS ---
FINAL REPORT CLINICAL HISTORY: lt medial knee pain and swelling FINDINGS: Left knee Three views were obtained. There is no acute fracture or dislocation. The joint spaces appear normal. No soft tissue abnormality is identified. IMPRESSION: No acute process. Reviewed, Interpreted and Dictated by Shaji Urena III, MD Transcribed by Beatris Thomas Authenticated and [facility]
== END ==
PROVIDERS: PCP Family Medicine; Visit Provider Orthopaedic Surgery
DX: M25.562 Pain in left knee (principal)
CPT/HCPCS: 73562

== ENCOUNTER → 2022-11-18 14:20 | Outpatient (CLI) | payer MEDICARE, SELFPAY ==
--- NOTE | 2022-11-18 14:21 | MR_ITS ---
FINAL REPORT CLINICAL HISTORY: lt knee pain swelling popping COMPARISON: None FINDINGS: Multi planar MR imaging was performed of the left knee. The anterior and posterior cruciate ligaments are intact. The quadriceps and patellar tendons are intact. There is a large tear of the posterior horn of the medial meniscus, best seen on image 10 of series 4. The lateral meniscus is intact. There is thickening and increased signal of the medial aspect of the medial collateral ligament, likely a partial tear. This is best seen on images #15 through 17 of series 7. The lateral collateral ligament is intact. The medial and lateral retinacula appear intact. There is a large osteochondral lesion involving the articular surface of the medial femoral condyle, that measures 2 x 1.5 cm in size, with extensive bone marrow in the medial femoral condyle. There is a small 7 mm osteochondral lesion involving the medial tibial plateau as well, with mild associated marrow edema. IMPRESSION: Large tear posterior horn medial meniscus. Large osteochondral lesion articular surface of the medial femoral condyle as described, with extensive bone marrow edema in the medial femoral condyle. There is a smaller osteochondral lesion in the medial tibial plateau, with mild associated marrow edema. There is thickening and increased signal medial aspect of the MCL, consistent with a partial tear. Reviewed, Interpreted and Dictated by Peter Sahu MD Transcribed by Lexis Mullen Authenticated and . [facility]
== END ==
PROVIDERS: PCP Family Medicine; Visit Provider Orthopaedic Surgery
DX: M25.562 Pain in left knee (principal)
CPT/HCPCS: 73721

== ENCOUNTER → 2022-11-26 14:06 | Outpatient (CLI) | payer MEDICARE, SELFPAY ==
--- NOTE | 2022-11-26 14:18 | ECG_ITS ---
APPROVED REPORT Exam: Resting ECG HR:71 bpm ECG Measurements Heart Rate 71 AXES TX 131 P 62 QRSd 93 QRS 37 QT 376 T 41 QTc 398 Conclusion SINUS RHYTHM LEFT ATRIAL ENLARGEMENT [-0.15mV P-WAVE IN V1/V2] ABNORMAL ECG UNCONFIRMED REPORT Electronically signed by : Rob Moreno MD 11/26/2022 17:15:49
--- NOTE | 2022-11-26 14:28 | XR_ITS ---
FINAL REPORT CLINICAL HISTORY: Pre Op pt is having surgery on left knee hypertension copd asthma soa pt stated more than usual COMPARISON: 10/03/2022 FINDINGS: PA and lateral views of the chest were obtained. The cardiac and mediastinal silhouettes are within normal limits. The lungs are clear. There is no pleural effusion or pneumothorax. No acute osseous abnormality is identified. IMPRESSION: No radiographic evidence of acute cardiac or pulmonary disease. Reviewed, Interpreted and Dictated by Cristina Powell MD Transcribed by Beatris Thomas Authenticated and [facility]
[2022-11-26 14:31] LABS: Basophils # 0.1 K/mm3 (0-0.2); Basophils % 0.4 % (0.1-2.0); Eosinophils # 0.3 K/mm3 (0.0-0.4); Eosinophils % 2.3 % (0.1-12.0); Hematocrit 43.2 % (37.0-47.0); Hemoglobin 13.6 g/dL (12.2-16.2); Lymphocytes # 2.7 K/mm3 (0.7-4.5); Lymphocytes % 24.3 % (10-50); Mean Corpuscular HGB Conc 31.5 g/dL (31.8-35.4); Mean Corpuscular Hemoglobin 31.2 pg (27.0-31.2); Mean Corpuscular Volume 98.9 fl (81-99); Mean Platelet Volume 7.6 fl (7.4-10.4); Monocytes # 0.7 K/mm3 (0.1-1.0); Monocytes % 6.5 % (1.7-9.3); Neutrophils # 7.3 K/mm3 (1.8-7.8); Neutrophils % 66.4 % (37.0-80.0); Platelet Count 404 K/mm3 (142-424); Red Blood Count 4.37 M/mm3 (4.20-5.40); Red Cell Distribution Width 13.9 % (11.5-17.5); White Blood Count 10.9 K/mm3 (4.8-10.8)
[2022-11-26 15:46] LABS: Alanine Aminotransferase 29 U/L (12-78); Albumin Level 3.9 g/dl (3.5-5.0); Albumin/Globulin Ratio 1.3 (1.1-1.8); Alkaline Phosphatase 86 U/L (38-126); Anion Gap 12.3 mEq/L (5-15); Aspartate Amino Transferase 27 U/L (14-36); Bilirubin,Total 0.3 mg/dl (0.2-1.3); Blood Urea Nitrogen 18 mg/dl (7-17); Calcium 9.4 mg/dl (8.4-10.2); Carbon Dioxide 27 mmol/L (22.0-30.0); Chloride 105 mmol/L (98-107); Estimated Glomerular Filt Rate 100 ml/min (>60); GFR (African American) 121 ML/MIN (>60); Globulin 3.1 g/dL (1.3-3.2); Glucose 103 mg/dl (74-100); Potassium 4.3 mmoL/L (3.5-5.1); Sodium 140 mmol/L (136-145)
== END ==
PROVIDERS: PCP Family Medicine; Visit Provider Orthopaedic Surgery
DX: J32.9 Chronic sinusitis, unspecified (principal); Z01.818 Encounter for other preprocedural examination; M23.92 Unspecified internal derangement of left knee
CPT/HCPCS: 36415; 71046; 80053; 85025; 93005

== ENCOUNTER 2022-12-07 11:27 | Day surgery (SDC) | payer MEDICARE, SELFPAY ==
[2022-12-07] VITALS (8 sets, daily range): BP systolic 133–164; BP diastolic 71–99; PULSE 50–601; RESP 7–18; TEMP 36.2–36.8; O2SAT 93–100; BMI 27.3
--- NOTE | 2022-12-07 13:40 | EXP.OP.NOTE ---
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 Left knee was marked with yes my initials. Transferred operative suite. Placed upon the prime bed. General anesthesia ministered airway secured. Left lower extremity was then prepped and draped normal sterile fashion within the knee telles. Once prepped and draped final operative timeout performed to identify proper patient procedure and extremity. Everyone involved the case agreed. There is no counter indications to beginning. Did receive preoperative antibiotics. Marking pen was used to soni bony landmarks in the and standard portal sites. Esmarch was used to exsanguinate extremity pneumatic tourniquet inflated to 300 mmHg. Skin knife was used incise standard anterior lateral portal blunt with trocar was placed in the patellofemoral joint exchange with a camera. Diagnostic arthroscopy began. Within the medial joint line and made the anterior medial portal with the help of an 18-gauge spinal needle exchange with a probe. On the MRI scan there was evidence of a large macerated tear of the posterior horn medial meniscus on her exam of the posterior horn the medial meniscus there is undersurface tear nondisplaced. Using a combination of straight biter and sucker shaver partial medial meniscectomy was performed back to [facility]. Also of note on the MRI scan was a large osteochondral defect on the medial femoral condyle there is no large osteochondral defect of the medial femoral condyle mild softening grade II chondromalacia of the medial femoral condyle present Scope into the intercondylar notch the ACL was seen and intact. Swept into the lateral joint line upon entering the lateral joint line the anterior aspect of the lateral tibia showed soft tissue fraying and loose cleve cartilage that was impinging on the knee upon bending using a combination of the straight biter to remove the cartilage flap and sucker shaver chondroplasty was performed of this area to remove the soft tissue impingement. The lateral meniscus was intact the lateral cartilage was intact Swept into the medial lateral gutters no further pathology was seen back in the patellofemoral joint cameras removed the joint was drained local anesthesia infiltrated the portal sites. Skin closed with nylon stitch. Sterile dressing placed from toe to thigh. Patient waken anesthesia taken recovery in stable condition. Tourniquet time (min): 27 Condition: stable Disposition: PACU Complications:: None apparent
--- NOTE | 2022-12-07 13:43 | P.PNANES_ITS ---
[facility] Disclaimer: The information contained in this section may have been updated after the patient was seen, as this information can be updated by other users. Medical History Allergies Arrhythmia Bladder leak Fibromyalgia History of anxiety History of blood clots History of breast cancer History of COPD HLD (hyperlipidemia) HTN (hypertension) Hypothyroidism Migraine Surgical History History of appendectomy History of cholecystectomy History of D&C History of tonsillectomy Family History Other Family history of diabetes mellitus Family history of heart disease Family history of hypertension Social History (Updated 12/07/22 @ 11:38 by Estefania Devries RN) Smoking Status: Never smoker alcohol intake: current substance use type: denies use current occupational status: retired Travel in the last 8 weeks: None household members: other housing: house [facility] Anesthesia Checklist Patient Identification Patient Identification: Arm Band Structural Data Admitted From: Home Planned Operative Procedure/s: Left Knee Arthroscopy, Partial Medial Meniscectomy Consent for Planned Operative Procedure(s) Verified: Yes Verified Documents: Surgical Consent and History and Physical NPO Status Verified Time NPO: 00:00 Additional verifications Anesthesia Reactions: No Hx Blood Transfusions: No Blood Transfusion Reaction: No Airway Assessment Mallampati Score:: Class II C-Spine Mobility Assessed: Yes TMJ Mobility Assessed: Yes Dentition: Good Dentition Neurological Assessment Level of Consciousness: Awake and Alert Anesthesia Plan Anesthesia Risk discussed: Yes Anesthesia Plan: Verified ASA Class: II Anesthesia Type: General
--- NOTE | 2022-12-07 13:44 | EXP.ANES.I ---
[facility] Anesthesia Record Part I Anesthesia Record I Intake, IV Amount: 800 Hydration: Adequate Estimated blood loss (mL): 5 Urine output (mL): 0 Blood Products used (#): none Blood Pressure: 159/99 SaO2: 93 Pulse Rate: 65 Airway Patency: Patent Respiratory Rate: 16 Temperature: 97.7 F Patient is:: Drowsy and Stable Stable to PACU at:: 13:40
--- NOTE | 2022-12-08 07:23 | EXP.ANES.II ---
[facility] Anesthesia Record Part II Anesthesia Record Part II Discharge Time: 14:00 Destination: Surgical Day Care (OP Surgery) PACU nurse assessment reviewed?: Yes Patient Condition:: Good Anesthesia Complications:: None Swallowing reflex intact?: Yes Airway Patency: Patent Cyanosis?: No Blood Pressure: 164/92 SaO2: 97 Respiratory Rate: 18 Pulse Rate: 68 Temperature: 98.2 F Mental Status: Alert & Oriented Pain level:: 5 Nausea and/or vomitting:: None Intake, IV Amount: 0 Hydration: Adequate
[2022-12-08 07:24] VITALS: BP 164/92; PULSE 68; RESP 18; TEMP 36.8; O2SAT 97
== END 2022-12-07 14:55 | disposition home or self-care (01) ==
PROVIDERS: PCP Family Medicine; Visit Provider Orthopaedic Surgery
PROC: (CPT 29870; principal; 2022-12-07 12:45)
DX: S83.232A Complex tear of medial meniscus, current injury, left knee, initial encounter (principal); J44.9 Chronic obstructive pulmonary disease, unspecified; E03.9 Hypothyroidism, unspecified; I10 Essential (primary) hypertension; E78.5 Hyperlipidemia, unspecified; Z79.899 Other long term (current) drug therapy; M94.262 Chondromalacia, left knee
CPT/HCPCS: 29881; 96374; J2405

== ENCOUNTER → 2022-12-23 14:27 | Outpatient (CLI) | payer MEDICARE, SELFPAY ==
[2022-12-23 14:32] LABS: Adenovirus,PCR Not Detected (NotDetected); Coronavirus 19, PCR Not Detected (NotDetected); Coronavirus 229E Not Detected (NotDetected); Coronavirus NL63 Not Detected (NotDetected); Coronavirus OC43 Not Detected (NotDetected); Coronovirus HKU1,PCR Not Detected (NotDetected); Human Metapneumovirus Not Detected (NotDetected); Influenza A, PCR Not Detected (NotDetected); Influenza AH1, 2009 Not Detected (NotDetected); Influenza AH1, PCR Not Detected (NotDetected); Influenza AH3,PCR Not Detected (NotDetected); Influenza B, PCR Not Detected (NotDetected); Parainfluenza 1, PCR Not Detected (NotDetected); Parainfluenza 2, PCR Not Detected (NotDetected); Parainfluenza 3, PCR Not Detected (NotDetected); Parainfluenza 4, PCR Not Detected (NotDetected); Respiratory Syncytial Virus Not Detected (NotDetected); Rhinovirus/Enterovirus Not Detected (NotDetected)
== END ==
PROVIDERS: PCP Physician Assistant; Visit Provider Physician Assistant
DX: Z20.822 Contact with and (suspected) exposure to COVID-19; J06.9 Acute upper respiratory infection, unspecified; R50.9 Fever, unspecified; R06.2 Wheezing; R06.02 Shortness of breath; R19.7 Diarrhea, unspecified; R05.1 Acute cough
CPT/HCPCS: 36415; 87632; 87635

== ENCOUNTER 2024-04-14 13:39 | Outpatient (CLI) | payer MEDICARE, SELFPAY ==
[2024-04-14 13:42] LABS: Adenovirus F 40/41, stool Not Detected (NotDetected); Astrovirus Not Detected (NotDetected); Campylobacter Not Detected (NotDetected); Cryptosporidium Not Detected (NotDetected); Cyclospora Cayetanesis Not Detected (NotDetected); Entamoeba histolytica Not Detected (NotDetected); Enteroaggregative E coli Not Detected (NotDetected); Enteropathogenic E coli Not Detected (NotDetected); Enterotoxigenic E coli Not Detected (NotDetected); Giardia lamblia Not Detected (NotDetected); Norovirus Not Detected (NotDetected); Plesimonas Shigalloides, PCR Not Detected (NotDetected); Rotavirus A Not Detected (NotDetected); Salmonella, PCR Not Detected (NotDetected); Sapovirus Not Detected (NotDetected); Shiga-like toxin E coli Not Detected (NotDetected); Shigella Enterovasive E coli Not Detected (NotDetected); Vibrio Cholerae Not Detected (NotDetected); Vibrio, PCR Not Detected (NotDetected); Yersinia Entercolitica, PCR Not Detected (NotDetected)
[2024-04-14 19:29] LABS: Clostridium Difficile A/B, PCR Detected (NotDetected)
== END 2024-04-14 23:59 | disposition home or self-care (01) ==
LOC: LAB 13:40
PROVIDERS: PCP Family Medicine; Visit Provider Nurse Practitioner Family
DX: R19.7 Diarrhea, unspecified (principal)
CPT/HCPCS: 87506

== ENCOUNTER 2025-01-04 10:03 | Day surgery (SDC) | payer MEDICARE, SELFPAY ==
--- NOTE | 2025-01-02 07:32 | EXP.HP ---
History of Present Illness *Admission Date: 01/04/25 *History of present illness: Mrs. Celaya is a 69-year-old female who is here for screening/surveillance colonoscopy. She previously had a positive Cologuard test and underwent colonoscopy (Shaji Connolly MD) in December 2021 and had 6 colon polyps (tubular adenomas x 6) which were removed. He did recommend 6-month repeat colonoscopy which she has not yet repeated. Over a year ago she was diagnosed with diverticulitis and treated with antibiotics. Since then she has had a change in her bowel habits with some diarrhea and urgency. She does have a family history of colon cancer (paternal uncle in his 50s and maternal aunt in her late 60s). The examination is deemed medically necessary for screening/surveillance colonoscopy. The patient has been seen, interviewed and examined prior to the procedure by both myself and the anesthesia provider. [facility] Disclaimer: The information contained in this section may have been updated after the patient was seen, as this information can be updated by other users. Medical History Impacted cerumen, right ear History of blood clots Migraine Bladder leak Arrhythmia History of breast cancer History of anxiety History of COPD HLD (hyperlipidemia) HTN (hypertension) Hypothyroidism Allergies Fibromyalgia Surgical History History of cholecystectomy History of D&C History of appendectomy History of tonsillectomy Family History Other Family history of diabetes mellitus Family history of heart disease Family history of hypertension Social History Smoking Status: Never smoker alcohol intake: current alcohol intake frequency: a few times a month substance use type: denies use current occupational status: retired Travel in the last 8 weeks?: None household members: other housing: house Have you lived/traveled outside US in past 30 days?: No Contact w/someone who lives/traveled outside US past 30 days?: No Exposure to someone with infectious disease in past 14 days?: No Do you have a fever (greater than 100.4 F or 38 C)?: No Have you tested positive for COVID-19?: No Exposed to someone with COVID-19 in past 14 days?: No Do you have a sore throat?: No Do you have a cough?: No Do you have any weakness?: No Are you experiencing any nausea/vomitting?: No Do you have any diarrhea?: No Are you experiencing any unusual bleeding?: No Do you have any muscle aches/pain?: No Do you have any abdominal pain?: No Are you experiencing loss of taste or smell?: No Other Medical History Have you received the Flu Vaccine for this season: Yes Have you received the Pneumonia Vaccine: Yes Review of Systems Review of Systems Review of systems (narrative): Negative *Cardiovascular Comments: Negative *Gastrointestinal Comments: Negative *Genitourinary Comments: Negative *Musculoskeletal Comments: Negative *Neurologic Comments: Negative Meds Home Medications and Allergies Home Medications ?Medication ?Instructions ?Recorded ?Confirmed ?Type carvedilol 3.125 mg tablet 3.125 mg PO BID BLOOD 05/01/19 01/04/25 History PRESSURE/HEART fluticasone furoate 200 1 puff inhalation DAILY Breathing 05/01/19 01/04/25 History mcg-vilanterol 25 mcg/dose problems inhalation powder (Breo Ellipta) pregabalin 75 mg capsule 75 mg PO BID Back Pain 05/01/19 01/04/25 History levothyroxine 88 mcg tablet 88 mcg PO DAILY thyroid 09/26/19 01/04/25 History multivitamin (Daily Multi-Vitamin 1 tab PO DAILY . 09/26/19 01/04/25 History tablet) cholecalciferol (vitamin D3) 50 50 mcg PO DAILY Supplement 10/17/19 01/04/25 History mcg (2,000 unit) capsule vitamin B complex-folic acid 0.4 1 tab PO DAILY Supplement 10/17/19 01/04/25 History mg tablet (B Complex 1 (with folic acid)) celecoxib 200 mg capsule (Celebrex) 200 mg PO DAILY osteoarthritis #30 12/23/23 01/04/25 Rx caps vancomycin 125 mg capsule 125 mg PO QID #40 caps 04/28/24 01/04/25 Rx New Prescriptions to Start Prescriptions: Allergies Allergy/AdvReac Type Severity Reaction Status Date / Time morphine Allergy Gastrointestinal Verified 01/04/25 10:34 Upset Exam *Routine HEENT Exam Head: Present normocephalic Eye: Present EOMI and PERRL ENT: Present mucous membranes moist *Routine Neck Exam Neck: Present supple *Routine Respiratory Exam Respiratory: Present CTA bilaterally *Routine Cardiovascular Exam Cardiovascular: Present RRR *Routine Abdominal Exam Abdominal: Present soft and normoactive bowel sounds; Absent tenderness *Routine Rectal Exam Rectal:: deferred *Routine Genitalia Exam Genitalia:: deferred *Routine Extremities Exam Extremities: Absent cyanosis, clubbing or edema *Routine Skin Exam Skin: Present warm; Absent rash *Routine Neurological Exam Neurological: Present alert and oriented X3 Assessment and Plan *Assessment and plan (1) Personal history of adenomatous and serrated colon polyps: Status: Acute Category: Medical Code(s): Z86.0101 - Personal history of adenomatous and serrated colon polyps (2) Screening for colon cancer: Status: Acute Category: Medical Code(s): Z12.11 - Encounter for screening for malignant neoplasm of colon Plan A/P: 1. Personal history of adenomatous colon polyps is the preprocedural diagnosis. The patient will be anesthetized/sedated using MAC sedation. The patient has been seen and examined. Cardiac and lung assessment prior to the examination is stable. Proceed with planned screening/surveillance colonoscopy.
[2025-01-02 12:51] VITALS: BMI 29.8
--- NOTE | 2025-01-04 06:45 | P.PCN_ITS ---
[facility] Procedure Note Date: 01/04/25 Time: 12:12 Procedure Note:: Colonoscopy Procedure Report: Colonoscopy with cold snare polypectomy Endoscopist: Amos Lind II, MD Referring physician: Alex Hanna MD Date of Procedure: January 04, 2025 Equipment: Olympus [id number] adult colonoscope Sedation: MAC sedation Indication: Mrs. Celaya is a 69-year-old female who is here for screening/surveillance colonoscopy. She previously had a positive Cologuard test and underwent colonoscopy (Shaji Connolly MD) in December 2021 and had 6 colon polyps (tubular adenomas x 6) which were removed. He did recommend 6- month repeat colonoscopy which she has not yet repeated. Over a year ago she was diagnosed with diverticulitis and treated with antibiotics. Since then she has had a change in her bowel habits with some diarrhea and urgency. The patient also more recently had C. difficile treated a few months ago. She has less abdominal pain but still gets some bloating and loose stools. She does have a family history of colon cancer (paternal uncle in his 50s and maternal aunt in her late 60s). The examination is deemed medically necessary for screening/surveillance colonoscopy. Procedure: Prior to the procedure, a history and physical exam was performed, and patient's medications and allergies were reviewed. The risks, benefits and alternatives of the sedation and procedure were discussed with the patient. All questions were answered and informed consent was obtained. The patient was brought to the procedure room. Patient identification and proposed procedure were verified by the physician and the nurse. The patient was placed in a left lateral decubitus position and the scope was passed under direct vision. Throughout the procedure, the patient's blood pressure, pulse, and oxygen saturations were monitored continuously. The colonoscopy was accomplished without difficulty. The patient tolerated the procedure well. Findings: On digital rectal examination there was normal rectal tone. There were no external hemorrhoids. The colonoscope was introduced through the anal canal to the rectum and advanced to the cecum. The ileocecal valve and appendiceal orifice were identified. The scope was advanced a short distance into the ileum which appeared grossly normal. The scope was then withdrawn into the colon. There were 9 colon polyps (ascending x 2 (7 and 9 mm), transverse x 4 (4, 5, 5 and 6 mm) and descending x 3 (4, 5 and 5 mm)). These were all removed via cold snare polypectomy. The remaining cecum, ascending and transverse colon and mucosa were grossly normal. There were extensively scattered diverticuli throughout the descending and sigmoid colon (LEFT colon). The rectum itself was normal. Upon retroflexion within the rectum there were grade 2 internal hemorrhoids. The preparation was excellent throughout with [place] Preparation Score of 9. The cecal time was 12 minutes. Impression: 1. Colonic polyps x 9 2. Extensive left-sided diverticulosis 3. Grade 2 internal hemorrhoids Plan: I will follow-up the polyp histology and recommend repeat screening/surveillance colonoscopy again in 3 years. I would encourage bulking FiberCon supplementation on a long-term daily maintenance basis.
[2025-01-04 10:36] VITALS: BP 133/92; PULSE 53; RESP 16; TEMP 36.1; O2SAT 92
[2025-01-04] MEDS: LACTATED RINGERS 1000ML 1,000 ML 50 ML IV (10:42)
--- NOTE | 2025-01-04 10:50 | P.PNANES_ITS ---
[facility] Disclaimer: The information contained in this section may have been updated after the patient was seen, as this information can be updated by other users. Medical History Impacted cerumen, right ear History of blood clots Migraine Bladder leak Arrhythmia History of breast cancer History of anxiety History of COPD HLD (hyperlipidemia) HTN (hypertension) Hypothyroidism Allergies Fibromyalgia Surgical History History of cholecystectomy History of D&C History of appendectomy History of tonsillectomy Family History Other Family history of diabetes mellitus Family history of heart disease Family history of hypertension Social History Smoking Status: Never smoker alcohol intake: current alcohol intake frequency: a few times a month substance use type: denies use current occupational status: retired Travel in the last 8 weeks?: None household members: other housing: house Have you lived/traveled outside US in past 30 days?: No Contact w/someone who lives/traveled outside US past 30 days?: No Exposure to someone with infectious disease in past 14 days?: No Do you have a fever (greater than 100.4 F or 38 C)?: No Have you tested positive for COVID-19?: No Exposed to someone with COVID-19 in past 14 days?: No Do you have a sore throat?: No Do you have a cough?: No Do you have any weakness?: No Are you experiencing any nausea/vomitting?: No Do you have any diarrhea?: No Are you experiencing any unusual bleeding?: No Do you have any muscle aches/pain?: No Do you have any abdominal pain?: No Are you experiencing loss of taste or smell?: No [facility] Anesthesia Checklist Patient Identification Patient Identification: Arm Band and Verbal (Name & ) Structural Data Admitted From: Home Planned Operative Procedure/s: colonoscopy Consent for Planned Operative Procedure(s) Verified: Yes Verified Documents: Surgical Consent NPO Status Verified Time NPO: 00:00 Additional verifications Anesthesia Reactions: No Hx Blood Transfusions: No Blood Transfusion Reaction: No Airway Assessment Mallampati Score:: Class II C-Spine Mobility Assessed: Yes TMJ Mobility Assessed: Yes Dentition: Good Dentition Neurological Assessment Level of Consciousness: Awake, Alert and Appropriate Hx Seizures: No Numbness or tingling in extremities: No Anesthesia Plan Anesthesia Risk discussed: Yes Anesthesia Plan: Verified ASA Class: II Anesthesia Type: MAC
[2025-01-04 12:13] VITALS: BP 121/70; PULSE 60; RESP 16; TEMP 36.1; O2SAT 92
[2025-01-04 12:23] VITALS: BP 151/84; PULSE 60; RESP 18; TEMP 36.1; O2SAT 95
[2025-01-04 12:33] VITALS: BP 154/86; PULSE 51; RESP 18; TEMP 36.1; O2SAT 96
[2025-01-04 12:43] VITALS: BP 134/66; PULSE 62; RESP 18; TEMP 36.1; O2SAT 96
== END 2025-01-04 12:43 | disposition home or self-care (01) ==
PROVIDERS: PCP Family Medicine; Visit Provider Internal Medicine Gastroenterology
PROC: 0DJD8ZZ Inspection of Lower Intestinal Tract, Via Natural or Artificial Opening Endoscopic (ICD-10-PCS; CPT 45378; principal; 2025-01-04 11:30)
DX: Z12.11 Encounter for screening for malignant neoplasm of colon (principal); D12.3 Benign neoplasm of transverse colon; D12.2 Benign neoplasm of ascending colon; D12.4 Benign neoplasm of descending colon; K64.1 Second degree hemorrhoids; K57.30 Diverticulosis of large intestine without perforation or abscess without bleeding; E03.9 Hypothyroidism, unspecified; M19.90 Unspecified osteoarthritis, unspecified site; J44.9 Chronic obstructive pulmonary disease, unspecified; M79.7 Fibromyalgia; Z86.0101 Personal history of adenomatous and serrated colon polyps; Z80.0 Family history of malignant neoplasm of digestive organs; Z90.49 Acquired absence of other specified parts of digestive tract; Z88.5 Allergy status to narcotic agent
CPT/HCPCS: 45385; 88305; J2003; J2704; J7120